=== PATIENT | female | born 1970 | race Caucasian/White ===

== ENCOUNTER → 2022-05-02 12:51 | Outpatient (BNVA) | payer OTHER, SELFPAY | PROVIDERS: PCP Internal Medicine; Visit Provider Psychiatry & Neurology Neurology | DX: G43.119 Migraine with aura, intractable, without status migrainosus (principal); G43.109 Migraine with aura, not intractable, without status migrainosus; G47.10 Hypersomnia, unspecified; R06.83 Snoring | CPT/HCPCS: 99202 ==

== ENCOUNTER → 2022-05-27 10:34 | Outpatient (REF) | payer OTHER, SELFPAY | LOC: HO.SL 10:34 | PROVIDERS: PCP Internal Medicine; Visit Provider Psychiatry & Neurology Neurology | DX: G47.10 Hypersomnia, unspecified (principal); G43.109 Migraine with aura, not intractable, without status migrainosus; R06.83 Snoring | CPT/HCPCS: 95806 ==

== ENCOUNTER → 2022-07-04 10:51 | Outpatient (BNVA) | payer OTHER, SELFPAY | PROVIDERS: PCP Internal Medicine Hematology & Oncology; Visit Provider Nurse Practitioner Family | DX: G43.109 Migraine with aura, not intractable, without status migrainosus (principal); F43.10 Post-traumatic stress disorder, unspecified; G47.10 Hypersomnia, unspecified; R06.83 Snoring | CPT/HCPCS: 99212 ==

== ENCOUNTER → 2022-09-18 10:44 | Outpatient (BNVA) | payer OTHER, SELFPAY | PROVIDERS: PCP Internal Medicine Hematology & Oncology; Visit Provider Nurse Practitioner Family | DX: G43.119 Migraine with aura, intractable, without status migrainosus (principal); G43.109 Migraine with aura, not intractable, without status migrainosus; F43.10 Post-traumatic stress disorder, unspecified | CPT/HCPCS: 99212 ==

== ENCOUNTER → 2023-01-08 11:15 | Outpatient (BNVA) | payer OTHER, SELFPAY | PROVIDERS: PCP Internal Medicine Hematology & Oncology; Visit Provider Physician Assistant Surgical ==

== ENCOUNTER 2023-04-23 12:48 | Outpatient (AMB) | payer OTHER, SELFPAY ==
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
[2023-04-23 13:19] VITALS: BP 122/76; PULSE 65; O2SAT 96
== END 2023-04-23 13:56 | disposition home or self-care (01) ==
PROVIDERS: Visit Provider Nurse Practitioner Family
DX: G43.119 Migraine with aura, intractable, without status migrainosus (principal); G47.9 Sleep disorder, unspecified
CPT/HCPCS: 99214

== ENCOUNTER → 2023-04-23 12:48 | Outpatient (BNVA) | payer OTHER, SELFPAY | PROVIDERS: Visit Provider Nurse Practitioner Family | DX: G43.119 Migraine with aura, intractable, without status migrainosus (principal); G47.9 Sleep disorder, unspecified | CPT/HCPCS: 99212 ==

== ENCOUNTER 2023-09-02 10:51 | Outpatient (AMB) | payer OTHER, SELFPAY ==
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
[2023-09-02 11:22] VITALS: BP 142/90; PULSE 68; RESP 16; O2SAT 98; BMI 34.4
== END 2023-09-02 11:43 | disposition home or self-care (01) ==
PROVIDERS: PCP Internal Medicine Hematology & Oncology; Visit Provider Nurse Practitioner Family
DX: G43.119 Migraine with aura, intractable, without status migrainosus (principal); G47.9 Sleep disorder, unspecified
CPT/HCPCS: 99214

== ENCOUNTER → 2023-09-02 10:56 | Outpatient (BNVA) | payer OTHER, SELFPAY | PROVIDERS: PCP Internal Medicine Hematology & Oncology; Visit Provider Nurse Practitioner Family | DX: G43.119 Migraine with aura, intractable, without status migrainosus (principal); G47.9 Sleep disorder, unspecified | CPT/HCPCS: 99212 ==

== ENCOUNTER 2023-12-04 13:56 | Outpatient (AMB) | payer OTHER, SELFPAY ==
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
[2023-12-04 14:10] VITALS: BP 130/80; PULSE 64; O2SAT 95; BMI 34.9
== END 2023-12-04 14:35 | disposition home or self-care (01) ==
PROVIDERS: PCP Internal Medicine Hematology & Oncology; Visit Provider Nurse Practitioner Family
DX: G43.119 Migraine with aura, intractable, without status migrainosus (principal); G47.9 Sleep disorder, unspecified
CPT/HCPCS: 99214

== ENCOUNTER → 2023-12-04 13:56 | Outpatient (BNVA) | payer OTHER, SELFPAY | PROVIDERS: PCP Internal Medicine Hematology & Oncology; Visit Provider Nurse Practitioner Family | DX: G43.119 Migraine with aura, intractable, without status migrainosus (principal); G47.9 Sleep disorder, unspecified | CPT/HCPCS: 99212 ==

== ENCOUNTER 2024-01-27 07:02 | Outpatient (REF) | payer OTHER, SELFPAY ==
--- NOTE | ~2024-01-27 | MR_ITS ---
EXAMINATION: MR BRAIN WITHOUT CONTRAST CLINICAL INFORMATION: Migraine with aura, intractable, without status migrainosus. COMPARISON: No prior MRI or CT available. TECHNIQUE: MRI of the brain was obtained using entered sequences without gadolinium. FINDINGS: There is no diffusion restriction identified. There is no intracranial hemorrhage, acute infarction, mass effect, or edema. There is an old lacunar type infarct in the right cerebellar hemisphere. Ventricles, sulci, and cisterns are normal in size and configuration for patient age. No shift of midline. No abnormal hemosiderin deposition is identified. There are a few rare punctate foci of white matter T2 hyperintensity in the periventricular, subcortical, and hemispheric deep white matter, nonspecific. Midline structures appear normally formed. The pituitary gland appears normal. Cerebellar tonsils are appropriately located. Major flow voids are preserved within the skull base. The globes and orbital contents demonstrate no abnormalities. Mild to moderate mucosal thickening present in the right maxillary sinus, and milder changes present in the left maxillary and ethmoid sinuses. There is leftward deviation of the posterior nasal septum with spurring. The mastoids and tympanic cavities are normally aerated. Extracranial soft tissues demonstrate no abnormalities. No suspicious bone marrow changes are evident. 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 MR/MR head/brain wo con IMPRESSION: 1. No acute intracranial abnormalities. 2. A few nonspecific tiny white matter foci, most likely on the basis of small vessel ischemic changes. These have been described in relation with migraines. 3. 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 4. Mild to moderate right maxillary sinus mucosal disease. Milder changes left maxillary sinus and ethmoid sinuses.
== END 2024-01-27 07:03 | disposition home or self-care (01) ==
LOC: HO.MRI 07:02
PROVIDERS: PCP Internal Medicine; Visit Provider Nurse Practitioner Family
DX: G43.119 Migraine with aura, intractable, without status migrainosus (principal); I12.9 Hypertensive chronic kidney disease with stage 1 through stage 4 chronic kidney disease, or unspecified chronic kidney disease; N18.9 Chronic kidney disease, unspecified
CPT/HCPCS: 70551

== ENCOUNTER → 2024-01-27 07:03 | Outpatient (BNV) | payer OTHER, SELFPAY | PROVIDERS: PCP Internal Medicine; Visit Provider Radiology Diagnostic Radiology | DX: G43.119 Migraine with aura, intractable, without status migrainosus (principal) | CPT/HCPCS: 70551 ==

== ENCOUNTER → 2024-03-14 12:10 | Outpatient (REF) | payer OTHER, SELFPAY ==
--- NOTE | 2024-03-14 12:15 | CA_ITS ---
Transthoracic Echocardiogram Patient (Last, First, Middle): Sushma Lyn, Gender: Female Date of : 1970 Age: 53 Procedure Date: 03/14/2024 Procedure Type: Transthoracic Echocardiogram Location: OP Height: 175.26 cm Weight: 107.05 kg BSA: 2.22 m2 Heart Rate: bpm BP: 130 / 80 mmHg Director Of Search Engine Marketing: ISMAEL Larsen MD: Samantha ROLDAN Senior Risk Manager: Ousmane Lima MD Symptoms: I63.81 - Other cerebral infarction due to occlusion or stenosis of small... Study Quality: Technically Difficult ECG Rhythm: Sinus Conclusions: - 1. Normal LV ejection fraction 55-60% with mild LVH with impaired relaxation filling pattern 2. Normal cardiac valvular Dopplers 3. Mildly dilated ascending aorta at 3.7 cm 4. Normal RV systolic pressure 5. No gross pericardial effusion Findings Procedure Information Contrast agent, definity, is being given per protocol without apparent complications. Left Ventricle Normal left ventricular size and systolic function. There is mildly increased left ventricular wall thickness. The visually estimated ejection fraction is between 55-60%. Spectral Doppler is indicative of an impaired relaxation filling pattern. E/E prime ratio is between 8 and 15 consistent with indeterminate filling pressures. Right Ventricle Normal right ventricular cavity size and systolic function. Atria The left atrium is likely dilated. There is no evidence of interatrial shunt by agitated saline. The right atrium is normal in size. Aortic Valve Normal aortic valve structure and function. There is no aortic valve stenosis. There is no aortic valve regurgitation. Mitral Valve Normal mitral valve structure and function. There is trace mitral valve regurgitation. There is no mitral valve stenosis. Pulmonic Valve The pulmonic valve is likely normal. Tricuspid Valve Normal tricuspid valve structure. There is trace tricuspid valve regurgitation. The right ventricular systolic pressure is normal. The right ventricular systolic pressure is 26 mmHg. Normal right atrial pressure. There is no evidence of pulmonary hypertension. Great Vessels The pulmonary artery was not well visualized. There is mild dilatation of the ascending aorta measuring 3.70 cm. Venous The inferior vena cava is mildly dilated. Pericardium/Pleural There is no evidence of pericardial effusion. Prior Study Comparison No prior study available for comparison. Recommendations, Care & Conclusions Consider a ADRIANA if clinically appropriate. Measurements 2D Linear Measurements IVSd: 1.21 0.6-0.9/0.6-1.0 cm LVIDd: 4.21 3.9-5.3/4.2-5.9 cm LVIDd Index: 1.90 2.4-3.2/2.2-3.1 cm/m2 LVIDs: 2.66 2.0-3.6 cm LVPWd: 1.08 0.7-1.1 cm Ao Root: 3.70 2.1-3.5 cm LA Diam: 3.60 2.7-3.8/3.0-4.0 cm LAIDs Index: 1.62 1.5-2.3 cm/m2 LV Mass: 208.01 67-162/88-224 g LV Mass Index: 93.70 43-95/49-115 g/m2 LVOT Diam: 2.20 3.0+(-)1.3 cm 2D Systolic Function EF 4C: 54.00 >55% EF 2C: 57.30 >55% EF BiP: 55.50 >55% Mitral Valve MV Pk E: 0.54 MV PK A: 0.78 MV Decel Time: 291.00 E/A: 0.70 E'Lateral: 5.44 E'Medial: 7.72 E/E' Med: 6.90 E/E' Lat: 9.90 PHT: 85.00 MVA PHT: 2.59 Decel [place]: 1.84 Aortic Valve AoV Pk Oumar: 1.41 AoV Mn Oumar: 0.99 AoV VTI: 0.26 AoV Pk Grad: 8.00 Aov Mn Grad: 4.00 ISAI Cont.VTI: 3.80 LVOT LVOT Pk Oumar: 1.06 LVOT Mn Oumar: 0.79 LVOT VTI: 0.26 LVOT Pk Grad: 4.00 LVOT Mn Grad: 3.00 LVOT Diam: 2.20 LVOT Area: 3.80 Diastolic Function MV Pk E: 0.54 MV Pk A: 0.78 E/A: 0.70 E'Medial: 7.72 E/E' Med: 6.90 E' Laterial: 5.44 E/E' Lat: 9.90 Right Ventricle TAPSE (mm): 17.00 TVS' Oumar: 9.25 Tricuspid Valve TR Pk Oumar: 2.13 TR Pk Grad: 18.00 RA Press: 8.00 RVSP: 26.00 Great Vessels Aorta Ao Root-2D: 3.70 2.0-3.7 cm Ao Asc: 3.70 2.1-3.4 cm Ao Arch: 3.10 Updated in Other Vendor System with Status of Final Ousmane Lima MD electronically signed on 03/15/2024 12:52:16 PM with status of Final
== END ==
LOC: HO.CARD 12:10
PROVIDERS: PCP Internal Medicine; Visit Provider Nurse Practitioner Family
DX: I63.81 Other cerebral infarction due to occlusion or stenosis of small artery (principal); I12.9 Hypertensive chronic kidney disease with stage 1 through stage 4 chronic kidney disease, or unspecified chronic kidney disease; N18.9 Chronic kidney disease, unspecified
CPT/HCPCS: 93306; Q9957

== ENCOUNTER → 2024-03-14 12:15 | Outpatient (BNV) | payer OTHER, SELFPAY | PROVIDERS: PCP Internal Medicine; Visit Provider Internal Medicine Cardiovascular Disease | DX: I63.81 Other cerebral infarction due to occlusion or stenosis of small artery (principal); R93.1 Abnormal findings on diagnostic imaging of heart and coronary circulation | CPT/HCPCS: 93306 ==

== ENCOUNTER 2024-03-15 14:21 | Outpatient (AMB) | payer OTHER, SELFPAY ==
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
[2024-03-15 14:27] VITALS: BP 142/82; PULSE 71; RESP 16; O2SAT 96; BMI 34.8
== END 2024-03-15 15:03 | disposition home or self-care (01) ==
PROVIDERS: PCP Internal Medicine; Visit Provider Psychiatry & Neurology Neurology
DX: G43.719 Chronic migraine without aura, intractable, without status migrainosus (principal)
CPT/HCPCS: 64615

== ENCOUNTER → 2024-03-15 14:21 | Outpatient (BNVA) | payer OTHER, SELFPAY | PROVIDERS: PCP Internal Medicine; Visit Provider Psychiatry & Neurology Neurology | DX: G43.719 Chronic migraine without aura, intractable, without status migrainosus (principal) | CPT/HCPCS: 64615; 99211; J0585 ==

== ENCOUNTER 2024-03-29 09:53 | Outpatient (REF) | payer OTHER, SELFPAY ==
[2024-03-29 10:06] LABS: MANUAL DIFF FLAG NO
[2024-03-29 10:46] LABS: Basophils Absolute Auto 0.1 X10*3/uL (0.0-0.2); Basophils Percent Auto 1.2 % (0-2); Eosinophils Absolute Auto 0.1 X10*3/uL (0.0-0.4); Eosinophils Percent Auto 2.7 % (0-4); Hematocrit 44.3 % (37.0-47.0); Hemoglobin 14.9 g/dl (12.0-16.0); Imm Gran Abs Auto 0.03 X10*3/uL (0.00-0.03); Imm Gran Pct Auto 0.6 % (0.0-0.4); Lymphocytes Absolute Auto 1.4 X10*3/uL (1.2-4.9); Lymphocytes Percent Auto 26.8 % (20-40); Mean Corpuscular HGB Conc 33.6 g/dl (31.0-35.0); Mean Corpuscular Hemoglobin 28.3 pg (27.0-33.0); Mean Corpuscular Volume 84.1 fL (80.0-98.0); Mean Platelet Volume 10.3 fL (9.4-12.3); Monocytes Absolute Auto 0.3 X10*3/uL (0.1-1.2); Monocytes Percent Auto 6.2 % (2-11); Neutrophils Absolute Auto 3.2 x10*3/uL (2.0-8.3); Neutrophils Percent Auto 62.5 % (45-73); Platelet Count 180 X10*3/uL (160-400); Red Blood Count 5.27 X10*6/uL (4.20-5.50); Red Cell Distribution Width 13.3 % (11.0-16.0); White Blood Count 5.1 X10*3/uL (4.8-10.8)
[2024-03-29 11:34] LABS: Alanine Aminotransferase 15 U/L (0-31); Albumin Level 4.4 g/dL (3.5-5.0); Alkaline Phosphatase 74 U/L (39-117); Anion Gap 13 (12-20); Aspartate Amino Transferase 17 U/L (5-31); Bilirubin Total 1.1 mg/dL (0.0-1.0); Blood Urea Nitrogen 14 mg/dL (9-16); Calcium 9.8 mg/dL (8.4-10.2); Carbon Dioxide 28 mmol/L (22-29); Chloride 106 mmol/L (96-108); Estimated Glomerular Filt Rate 57; Glucose Random 106 mg/dL (60-115); Potassium 4.1 mmol/L (3.3-5.1); Sodium 143 mmol/L (135-145); Total Protein 7.5 g/dL (6.5-8.0)
[2024-03-29 11:37] LABS: Erythrocyte Sedimentation Rate 6 MM/HR (0-20)
[2024-03-30 08:43] LABS: CRP High Sensitivity 3.8 mg/L
== END 2024-03-29 09:54 | disposition home or self-care (01) ==
LOC: HO.LAB 09:53
PROVIDERS: PCP Internal Medicine; Visit Provider Nurse Practitioner Family
DX: I63.81 Other cerebral infarction due to occlusion or stenosis of small artery (principal); I10 Essential (primary) hypertension; N18.9 Chronic kidney disease, unspecified
CPT/HCPCS: 36415; 80053; 85025; 85652; 86141

== ENCOUNTER 2024-04-12 07:44 | Outpatient (REF) | payer OTHER, SELFPAY ==
--- NOTE | ~2024-04-12 | CT_ITS ---
EXAMINATION: CT ANGIOGRAM HEAD CT ANGIOGRAM NECK CLINICAL INFORMATION: Hypertension, chronic migraine headaches with aura, right-sided lacunar infarct COMPARISON: MRI brain January 27, 2024 TECHNIQUE: Test bolus sequences followed by intravenous administration 70 mL of Omnipaque 350. Helical imaging was performed in the axial plane from the aortic arch to the skull vertex. Delayed postcontrast imaging of the head was also performed. The data was processed at the instructional design technologist's workstation for generation of MIP sequences. Angled MIPs and volume rendered reformatted images were also generated at an offline 3D workstation. Stenoses are assessed in accordance with Munson et al. Quantification of Carotid Stenosis on CT Angiography. AJR 2006. 27(1):13-19. This CT examination was performed using dose optimization techniques as appropriate, variously including the following: *Automated exposure control *Adjustment of mA and/or kV according to patient size (this includes techniques or standardized protocols for targeted exams where dose is matched to indication/reason for exam; i.e. extremities or head) *Use of iterative reconstruction technique DLP: 2724 mGy-cm FINDINGS: CT HEAD: The ventricles and sulci are normal in size and configuration without significant volume loss or hydrocephalus. Chronic lacunar infarct within the right cerebellum is better appreciated on prior MRI. No territorial loss of antony-white differentiation. No acute intracranial hemorrhage or extra-axial fluid collection. No mass lesion, significant mass effect, or herniation pattern. No pathologic intra-axial enhancement or regional oligemia. The orbits are grossly normal. Trace paranasal sinus mucosal thickening. No mastoid effusion. Osseous structures are intact. CTA HEAD: No hemodynamically significant stenosis or occlusion in the anterior or posterior circulation. Trace calcified plaque at the right supraclinoid ICA without stenosis. 2 mm infundibulum vs aneurysm arising from the terminal left ICA. No high flow vascular malformations. Timing of the contrast bolus allows assessment of the major dural venous sinuses, which all opacify normally CTA NECK: Four vessel branching pattern with left vertebral artery arising directly from the arch between the left common carotid and left subclavian arteries. Origins of the great vessels are widely patent. The common carotid arteries are widely patent. The carotid bifurcations and bilateral internal carotid arteries are normal. The right vertebral artery is dominant. The vertebral artery ostia are widely patent. Both vertebral arteries are widely patent throughout their extracranial cervical course noting limited diagnostic assessment of the right V1 segment related to beam hardening artifact from adjacent perivertebral venous contrast opacification. CT NECK: Asymmetric enlargement of the right thyroid lobe with apparent nodule measuring approximately 1.5 cm in craniocaudal dimension for which further evaluation with thyroid ultrasound is advised. Symmetric prominent bilateral level 2A lymph nodes, presumably reactive. Elongation and ossification of the bilateral styloid processes that can be correlated clinically for [place] syndrome. CT/CT angio head neck IMPRESSION: 1. No acute intracranial findings. Chronic lacunar infarct within the right cerebellum is better appreciated on prior MRI. 2. No acute arterial occlusion or hemodynamically significant stenosis within the head or neck. 3. 2 mm infundibulum vs aneurysm arising from the terminal left ICA. 4. Asymmetric enlargement of the right thyroid lobe with apparent nodule measuring approximately 1.5 cm in craniocaudal dimension for which further evaluation with thyroid ultrasound is advised. 5. Elongation and ossification of the bilateral styloid processes that can be correlated clinically for [place] syndrome. Electronically signed by: Crista Stein MD 04/19/2024 05:00 PM EDT
[2024-04-12] MEDS: iohexoL 350 MG/ML 75 ML INFUS..BTL 70 ML IV (08:38)
== END 2024-04-12 07:45 | disposition home or self-care (01) ==
LOC: HO.CT 07:44
PROVIDERS: Visit Provider Nurse Practitioner Family
DX: I63.81 Other cerebral infarction due to occlusion or stenosis of small artery (principal); I12.9 Hypertensive chronic kidney disease with stage 1 through stage 4 chronic kidney disease, or unspecified chronic kidney disease; N18.9 Chronic kidney disease, unspecified
CPT/HCPCS: 70496; 70498; Q9967

== ENCOUNTER 2024-04-27 17:38 | Emergency (ER) | payer OTHER, SELFPAY ==
--- NOTE | ~2024-04-27 | CT_ITS ---
EXAMINATION: CT HEAD WITHOUT CONTRAST CLINICAL INFORMATION: Severe headache. COMPARISON: CT from 04/12/2024. TECHNIQUE: Contiguous axial imaging was performed from the skullbase to vertex without intravenous administration of contrast. This CT examination was performed using dose optimization techniques as appropriate, variously including the following: *Automated exposure control *Adjustment of mA and/or kV according to patient size (this includes techniques or standardized protocols for targeted exams where dose is matched to indication/reason for exam; i.e. extremities or head) *Use of iterative reconstruction technique DLP: 661 mGy-cm. FINDINGS: There is no evidence of acute intracranial hemorrhage or territorial infarction. No abnormal mass effect or midline shift is seen. Aguilar to white matter differentiation is well preserved. No extra-axial fluid collections are identified. The ventricles are normal in size. There is no abnormal attenuation within the brain parenchyma. The osseous structures and soft tissues are normal. The mastoid air cells and visualized portions of the paranasal sinuses are well aerated. CT/CT head/brain wo IV con IMPRESSION: No acute intracranial pathology. Electronically signed by: Montez Seals MD 04/27/2024 06:35 PM EDT
[2024-04-27 17:50] VITALS: BP 169/98; PULSE 65; RESP 81; TEMP 36.7; O2SAT 95; BMI 35.1
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
[2024-04-27 18:21] LABS: MANUAL DIFF FLAG NO
[2024-04-27 18:26] LABS: Basophils Absolute Auto 0.1 X10*3/uL (0.0-0.2); Eosinophils Absolute Auto 0.2 X10*3/uL (0.0-0.4); Eosinophils Percent Auto 2.7 % (0-4); Hematocrit 43.3 % (37.0-47.0); Hemoglobin 14.4 g/dl (12.0-16.0); Imm Gran Abs Auto 0.03 X10*3/uL (0.00-0.03); Imm Gran Pct Auto 0.5 % (0.0-0.4); Lymphocytes Absolute Auto 1.7 X10*3/uL (1.2-4.9); Lymphocytes Percent Auto 28.3 % (20-40); Mean Corpuscular HGB Conc 33.3 g/dl (31.0-35.0); Mean Corpuscular Hemoglobin 28.3 pg (27.0-33.0); Mean Corpuscular Volume 85.2 fL (80.0-98.0); Mean Platelet Volume 10.1 fL (9.4-12.3); Monocytes Absolute Auto 0.4 X10*3/uL (0.1-1.2); Monocytes Percent Auto 6.4 % (2-11); Neutrophils Absolute Auto 3.7 x10*3/uL (2.0-8.3); Neutrophils Percent Auto 61.1 % (45-73); Platelet Count 189 X10*3/uL (160-400); Red Blood Count 5.08 X10*6/uL (4.20-5.50); Red Cell Distribution Width 13.2 % (11.0-16.0)
[2024-04-27 18:39] LABS: Alanine Aminotransferase 14 U/L (0-31); Albumin Level 4.3 g/dL (3.5-5.0); Alkaline Phosphatase 75 U/L (39-117); Anion Gap 11 (12-20); Aspartate Amino Transferase 17 U/L (5-31); Blood Urea Nitrogen 9 mg/dL (9-16); Calcium 9.3 mg/dL (8.4-10.2); Carbon Dioxide 26 mmol/L (22-29); Chloride 107 mmol/L (96-108); Creatinine Clr Calc Pharmacy 91.3; Estimated Glomerular Filt Rate > 60; Glucose Random 93 mg/dL (60-115); Potassium 3.9 mmol/L (3.3-5.1); Sodium 140 mmol/L (135-145); Total Protein 7.3 g/dL (6.5-8.0)
[2024-04-27 19:01] LABS: Erythrocyte Sedimentation Rate 5 MM/HR (0-20)
[2024-04-27] MEDS: Cyclobenzaprine HCl 10 MG TABLET PO (23:28)
[2024-04-27 23:54] VITALS: BP 169/98; PULSE 65; RESP 16; TEMP 36.7; O2SAT 95
== END 2024-04-27 23:55 | disposition home or self-care (01) ==
PROVIDERS: Physician Assistant; Emergency Provider Emergency Medicine
DX: G44.209 Tension-type headache, unspecified, not intractable (principal); I12.9 Hypertensive chronic kidney disease with stage 1 through stage 4 chronic kidney disease, or unspecified chronic kidney disease; N18.9 Chronic kidney disease, unspecified; Z86.73 Personal history of transient ischemic attack (TIA), and cerebral infarction without residual deficits
CPT/HCPCS: 36415; 70450; 80053; 85025; 85652; 86140; 99283; 99284

== ENCOUNTER 2024-05-12 12:33 | Outpatient (REF) | payer OTHER, SELFPAY ==
--- NOTE | ~2024-05-12 | XR_ITS ---
EXAMINATION: XR CERVICAL SPINE CLINICAL INFORMATION: Cervicalgia COMPARISON: None available. TECHNIQUE: 6 views of the cervical spine, inclusive of flexion and extension views, were obtained. FINDINGS: C7 is obscured by the soft tissues of the patient's shoulder on the lateral view. This is not better seen on the Swimmer's view. The tip of the odontoid is obscured on the open-mouth view. There is no fracture. Prevertebral soft tissues are within normal limits. There is mild disc space narrowing at C5-C6 and C6-C7 with marginal osteophyte formation. There is no subluxation. There is no change in alignment with flexion or extension. The neural foramina are patent. XR/XR cervical spine w flex/ext IMPRESSION: 1. Degenerative disc disease at C5-C6 and C6-C7. 2. No evidence of subluxation. 3. No change in alignment with flexion or extension. Electronically signed by: Bridgette Ballesteros MD 06/02/2024 02:11 PM EDT
== END 2024-05-12 12:34 | disposition home or self-care (01) ==
LOC: HO.XRAY 12:33
PROVIDERS: PCP Internal Medicine; Visit Provider Nurse Practitioner Family
DX: M54.2 Cervicalgia (principal); M54.81 Occipital neuralgia
CPT/HCPCS: 72052

== ENCOUNTER 2024-05-17 12:55 | Outpatient (AMB) | payer OTHER, SELFPAY ==
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
[2024-05-17 13:08] VITALS: BP 139/92; PULSE 64; O2SAT 99; BMI 34.6
== END 2024-05-17 13:54 | disposition home or self-care (01) ==
PROVIDERS: Visit Provider Nurse Practitioner Family
DX: M54.81 Occipital neuralgia (principal); I67.1 Cerebral aneurysm, nonruptured; G43.709 Chronic migraine without aura, not intractable, without status migrainosus; E04.1 Nontoxic single thyroid nodule
CPT/HCPCS: 99204; G2211

== ENCOUNTER → 2024-05-17 12:55 | Outpatient (BNVA) | payer OTHER, SELFPAY | PROVIDERS: Visit Provider Nurse Practitioner Family | DX: M54.81 Occipital neuralgia (principal); G43.709 Chronic migraine without aura, not intractable, without status migrainosus; I67.1 Cerebral aneurysm, nonruptured | CPT/HCPCS: 99202 ==

== ENCOUNTER 2024-05-30 13:48 | Outpatient (REF) | payer OTHER, SELFPAY ==
--- NOTE | ~2024-05-30 | US_ITS ---
EXAMINATION: US THYROID CLINICAL INFORMATION: Asymmetric enlargement of the right lobe of the thyroid. COMPARISON: None available. TECHNIQUE: Linear transducer grayscale and color Doppler examination with attention to the region of the thyroid. FINDINGS: SIZE: Measurements of the thyroid lobes and nodules are given in sagittal, anteroposterior and transverse dimensions respectively. Right Thyroid Lobe: 5.1 x 1.7 x 1.7 cm, volume 8 mL. Parenchyma: The gland echotexture is homogeneous. Thyroid vascularity is normal. Left Thyroid Lobe: 4.2 x 1.7 x 1.7 cm, volume 6 mL. Parenchyma: The gland echotexture is homogeneous. Thyroid vascularity is normal. Isthmus: 0.4 cm in maximum AP dimension. Estimated total number of nodules greater than or equal to 1 cm: 1. 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 Location: Right upper. Size: 0.7 x 0.6 x 0.4 cm, volume 0.1 mL. Nodule characteristics: Composition: Solid (2). Echogenicity: Isoechoic (1). Shape: Not taller than wide (0). Margins: Smooth (0). Echogenic Foci: None (0). ACR TI-RADS total points: 3 ACR TI-RADS category: 3 2. Location: Right mid. Size: 1.0 x 0.9 x 0.8 cm, volume 0.4 mL. Nodule characteristics: Composition: Solid (2). Echogenicity: Isoechoic (1). Shape: Not taller than wide (0). Margins: Smooth (0). Echogenic Foci: None (0). ACR TI-RADS total points: 3 ACR TI-RADS category: 3 NODES: No lymphadenopathy is seen in the tissue surrounding the thyroid gland. US/US thyroid IMPRESSION: 1.0 cm or less, TI-RADS category 3, right thyroid nodules. No further dedicated follow-up imaging of these nodules is indicated, per ACR recommendation. ACR TI-RADS RECOMMENDATION REFERENCE: Ultrasound-guided fine-needle aspiration, followup ultrasound, no further follow up. * TR1 (0 point) and TR2 (2 points): No FNA or follow up. * TR3 (3 points): FNA if more than or equal to 2.5 cm in maximum dimension, followup ultrasound in 1, 3 and 5 years if 1.5 to 2.4 cm in maximum dimension. * TR4 (4-6 points): FNA if more than or equal to 1.5 cm in maximum dimension, followup ultrasound in 1, 2, 3 and 5 years if 1 to 1.4 cm in maximum dimension. * TR5 (more than or equal to 7 points): FNA if more than or equal to 1 cm in maximum dimension, followup ultrasound every year for 5 years if 0.5 to 0.9 cm in maximum dimension. * TR3, TR4 or TR5 nodules that are below the size threshold for followup receive no follow up. Electronically signed by: David Sierra MD 05/30/2024 04:45 PM EDT
== END 2024-05-30 13:49 | disposition home or self-care (01) ==
LOC: HO.US 13:48
PROVIDERS: PCP Internal Medicine; Visit Provider Nurse Practitioner Family
DX: E04.1 Nontoxic single thyroid nodule (principal)
CPT/HCPCS: 76536

== ENCOUNTER 2024-06-10 08:51 | Outpatient (AMB) | payer OTHER, SELFPAY ==
[2024-06-10 09:19] VITALS: BP 161/78; PULSE 69; RESP 16; O2SAT 94; BMI 35.0
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
== END 2024-06-10 09:30 | disposition home or self-care (01) ==
PROVIDERS: Visit Provider Internal Medicine
DX: M54.81 Occipital neuralgia (principal)
CPT/HCPCS: 64405

== ENCOUNTER → 2024-06-10 08:51 | Outpatient (BNVA) | payer OTHER, SELFPAY | PROVIDERS: Visit Provider Internal Medicine | DX: M54.81 Occipital neuralgia (principal) | CPT/HCPCS: 64405; J2795 ==

== ENCOUNTER 2024-06-20 12:24 | Outpatient (AMB) | payer OTHER, SELFPAY ==
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
[2024-06-20 12:33] VITALS: BP 132/82; PULSE 72; O2SAT 97; BMI 35.1
== END 2024-06-20 12:55 | disposition home or self-care (01) ==
PROVIDERS: PCP Internal Medicine; Visit Provider Psychiatry & Neurology Neurology
DX: G43.719 Chronic migraine without aura, intractable, without status migrainosus (principal)
CPT/HCPCS: 64615

== ENCOUNTER → 2024-06-20 12:24 | Outpatient (BNVA) | payer OTHER, SELFPAY | PROVIDERS: PCP Internal Medicine; Visit Provider Psychiatry & Neurology Neurology | DX: G43.719 Chronic migraine without aura, intractable, without status migrainosus (principal) | CPT/HCPCS: 64615; 99211; J0585 ==

== ENCOUNTER 2024-09-01 13:50 | Outpatient (AMB) | payer OTHER, SELFPAY ==
[2024-09-01 13:55] VITALS: BP 148/90; PULSE 66; BMI 35.0
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
== END 2024-09-01 14:34 | disposition home or self-care (01) ==
PROVIDERS: Visit Provider Internal Medicine Cardiovascular Disease
DX: I11.9 Hypertensive heart disease without heart failure (principal); I69.30 Unspecified sequelae of cerebral infarction; R94.31 Abnormal electrocardiogram [ECG] [EKG]
CPT/HCPCS: 93010; 99214; G2211

== ENCOUNTER → 2024-09-01 13:50 | Outpatient (BNVA) | payer OTHER, SELFPAY | PROVIDERS: Visit Provider Internal Medicine Cardiovascular Disease | DX: I11.9 Hypertensive heart disease without heart failure (principal); Z86.73 Personal history of transient ischemic attack (TIA), and cerebral infarction without residual deficits; R94.31 Abnormal electrocardiogram [ECG] [EKG] | CPT/HCPCS: 93005; 99212 ==

== ENCOUNTER → 2024-11-01 14:45 | Outpatient (BNVA) | payer OTHER, SELFPAY | PROVIDERS: PCP Internal Medicine; Visit Provider Psychiatry & Neurology Neurology | DX: G43.719 Chronic migraine without aura, intractable, without status migrainosus (principal) | CPT/HCPCS: 64615; 99211; J0585 ==

== ENCOUNTER → 2024-11-01 14:45 | Outpatient (AMB) | payer OTHER, SELFPAY ==
[2024-11-01 14:51] VITALS: BP 142/94; PULSE 70; O2SAT 97; BMI 35.0
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
--- OUTSIDE RECORDS SUMMARY | 2024-11-01 18:39 | XMS_ITS | Encounter Summary ---
Author Organization [facility] Address [address] [place] [address] Care Team Providers Care Manager Database Administration Name Role Phone Tiff Bhakta MD Primary Care Provider [phone] Melchor Rodríguez MD Primary Care Provider [phone] Reason for Visit * Reason Comments E-prescribe Rx Request Encounter Details Date Type Department Care Team Description 12/31/2021 Refill Adult Medicine [facility] [address] [place] [id number] Jenni Brady PA [address] [place] [address] [id number] E-prescribe Rx Request Social History Tobacco Use Types Packs/Day Years Used Date Smoking Tobacco: Never Smokeless Tobacco: Never Alcohol Use Standard Drinks/Week Comments No 0 (1 standard drink = 0.6 oz pur e alcohol) Sex Assigned at Date Recorded Not on file Job Start Date Occupation Industry Not on file Not on file Not on file documented as of this encounter Miscellaneous Notes * Telephone Encounter - Dayanna Monroy M.A. - 12/31/2021 10:34 AM EDT Lab Results Component Value Date NA 142 10/16/2021 K 3.9 10/16/2021 CO2 28 10/16/2021 CL 108 10/16/2021 BUN 9 10/16/2021 CREAT 0.93 10/16/2021 GLU 91 10/16/2021 CA 9.0 10/16/2021 GFR > 60 10/16/2021 Last appt with Jenni Brady PAC 10/18/21 Last rx 10/14/21 #90 with 2 refills Pending appt with Sarah Meier, PAC 04/17/22 * Telephone Encounter - Lisa Lawson - 12/31/2021 7:48 AM EDT Patient would like script to be: E-PRESCRIBED/FAXED TO PHARMACY WHEN WAS THE PATIENT'S LAST APPOINTMENT IN ADULT MEDICINE? 10/14/21 WHEN WAS THE LAST TIME THE PATIENT SAW THEIR PCP? never Does patient have an upcoming appointment? Yes 04/17/22 (THE MEDICATION REQUESTED IS ON THE MED LIST ABOVE) All of the medications requested were on the CURRENT MEDS list Did you check the Pharmacy information above?: YES Patient wants: 90 -day supply Is this a mail order prescription request ? NO If the refill is from a FAXED refill request what is the RX # listed on the fax? N/A Patients current insurance carrier is: Payor: [employer] / Plan: [employer] [place] / Product Type: MEDICAID RISK documented in this encounter Plan of Treatment Not on file documented as of this encounter Visit Diagnoses Not on filedocumented in this encounter Care Teams Manager Database Administration Relationship Specialty Start Date End Date Tiff Bhakta MD [address] [place] [address] PCP - General Internal Medicine 08/27/21 03/26/22 Melchor Rodríguez MD [address] [place] [id number] PCP - General Internal Medicine 03/27/22 documented as of this encounter
--- OUTSIDE RECORDS SUMMARY | 2024-11-01 18:39 | XMS_ITS | Encounter Summary ---
[facility] Organization [facility] Address [address] [place] [address] Care Team Providers Care Button Tufter Name Role Phone Jose Abbasi MD Primary Care Provider Unavailable Tiff Bhakta MD Primary Care Provider Melchor Rodríguez MD Primary Care Provider [phone] Encounter Details Date Type Department Care Team Description 01/07/2017 [facility] Medical Records [address] [place] [address] Abstract, Provider Social History Tobacco Use Types Packs/Day Years Used Date Smoking Tobacco: Never Smokeless Tobacco: Never Alcohol Use Standard Drinks/Week Comments No 0 (1 standard drink = 0.6 oz pur e alcohol) Sex Assigned at Date Recorded Not on file Job Start Date Occupation Industry Not on file Not on file Not on file documented as of this encounter Plan of Treatment Not on file documented as of this encounter Visit Diagnoses Not on filedocumented in this encounter Care Teams Button Tufter Relationship Specialty Start Date End Date Jose Abbasi MD PCP - General Internal Medicine 01/18/19 Tiff Bhakta MD [address] [place] [address] PCP - General Internal Medicine 08/27/21 03/26/22 Melchor Rodríguez MD [address] [place] [address] PCP - General Internal Medicine 03/27/22 documented as of this encounter
--- OUTSIDE RECORDS SUMMARY | 2024-11-01 18:39 | XMS_ITS | Encounter Summary ---
Author Organization [facility] Address [address] [place] [address] Care Team Providers Care Government Relations Director Name Role Phone Jose Abbasi MD Primary Care Provider Unavailable Tiff Bhakta MD Primary Care Provider [phone] Melchor Rodríguez MD Primary Care Provider [phone] Reason for Visit * Reason Onset Date Comments Appointment-Internal Referral 02/01/2021 Encounter Details Date Type Department Care Team Description 02/01/2021 Telephone Adult Medicine - [address] [address] Alphonse Angel PA-C [address] [place] [address] Appointment-Internal Referral Social History Tobacco Use Types Packs/Day Years Used Date Smoking Tobacco: Never Smokeless Tobacco: Never Alcohol Use Standard Drinks/Week Comments No 0 (1 standard drink = 0.6 oz pur e alcohol) Sex Assigned at Date Recorded Not on file Job Start Date Occupation Industry Not on file Not on file Not on file COVID-19 Exposure Response Date Recorded In the last month, have you been in contact with someone who was confirmed or suspected to have Coronavirus / COVID-19? No / Unsure 01/15/2021 9:37 AM EDT documented as of this encounter Miscellaneous Notes * Telephone Encounter - Sana Dorsey - 02/01/2021 4:15 PM EDT Referral to Physiatry: FYI to referring. Calls made and letter sent for patient to call and schedule appt. Unable to book at this time. documented in this encounter Plan of Treatment Not on file documented as of this encounter Visit Diagnoses Not on filedocumented in this encounter Care Teams Government Relations Director Relationship Specialty Start Date End Date Jose Abbasi MD PCP - General Internal Medicine 01/18/19 Tiff Bhakta MD [address] [place] [address] PCP - General Internal Medicine 08/27/21 03/26/22 Melchor Rodríguez MD [address] [place] [address] PCP - General Internal Medicine 03/27/22 documented as of this encounter
--- OUTSIDE RECORDS SUMMARY | 2024-11-01 18:39 | XMS_ITS | Encounter Summary ---
Author Organization [facility] Address [address] [place] [address] Care Team Providers Care Lens Marker Name Role Phone Melchor Rodríguez MD Primary Care Provider [phone] Reason for Visit * Reason Comments E-prescribe Rx Request Encounter Details Date Type Department Care Team Description 07/19/2022 Refill Adult Medicine [address] [address] Sarah Meier PA-C [address] [place] [address] E-prescribe Rx Request Social History Tobacco Use [...] encounter Miscellaneous Notes * Telephone Encounter - Raghu Metzger C.M.A. - 07/21/2022 1:14 PM EST LV 04/17/22 Appt with new PCP 11/19/22 * Telephone Encounter - Kisha Bonilla M.A. - 07/21/2022 1:02 PM EST Pt has not established care with new PCP. * Telephone Encounter - Nataly Jeffers - 07/19/2022 8:52 AM EST Patient would like script to be: E-PRESCRIBED/FAXED TO PHARMACY WHEN WAS THE PATIENT'S LAST APPOINTMENT IN ADULT MEDICINE? 04-17-22 WHEN WAS THE LAST TIME THE PATIENT SAW THEIR PCP? Same as above Does patient have an upcoming appointment? Yes 11-19-22 (THE MEDICATION REQUESTED IS ON THE MED [...] N/A Patients current insurance carrier is: Payor: [facility] F[facility] / Plan: [facility] / Product Type: MEDICAID RISK documented in this encounter Plan of Treatment Not on file documented as of this encounter Visit Diagnoses Not on filedocumented in this encounter Care Teams Lens Marker Relationship Specialty Start Date End Date Melchor Rodríguez MD [address] [place] [address] PCP - General Internal Medicine 03/27/22 documented as of this encounter
--- OUTSIDE RECORDS SUMMARY | 2024-11-01 18:39 | XMS_ITS | Encounter Summary ---
[facility] Organization [facility] Address [address] [place] [address] Care Team Providers Care Logistics Solution Manager Name Role Phone Melchor Rodríguez MD Primary Care Provider [phone] Reason for Visit * Reason Comments E-prescribe Rx Request Encounter Details Date Type Department Care Team Description 10/15/2022 Refill Adult Medicine [facility] [address] [place] [address] Sarah Meier PA-C [address] [place] [address] E-prescribe Rx Request Social History Tobacco Use [...] encounter Miscellaneous Notes * Telephone Encounter - Amber Flower M.A. - 10/15/2022 10:14 AM EST Lab Results Component Value Date NA 142 10/16/2021 K 3.9 10/16/2021 CO2 28 10/16/2021 CL 108 10/16/2021 BUN 9 10/16/2021 CREAT 0.93 10/16/2021 GLU 91 10/16/2021 CA 9.0 10/16/2021 GFR > 60 10/16/2021 MARY w/Sarah Meier 04/17/2022 MARY w/PCP not on file Next OV w/PCP 11/19/2022 * Telephone Encounter - Kisha Bonilla M.A. - 10/15/2022 10:02 AM EST Pt has not established care with new PCP * Telephone Encounter - Nataly Orlando - 10/15/2022 6:58 AM EST Patient would like script to be: E-PRESCRIBED/FAXED TO PHARMACY WHEN WAS THE PATIENT'S LAST APPOINTMENT IN ADULT MEDICINE? 04-17-22 WHEN WAS THE LAST TIME THE PATIENT SAW THEIR PCP? Same as above Does patient have an upcoming appointment? No a letter will need to be sent out (THE MEDICATION REQUESTED IS ON THE MED [...] N/A Patients current insurance carrier is: Payor: [facility] FFS / Plan: [facility] / Product Type: MEDICAID RISK documented in this encounter Plan of Treatment Not on file documented as of this encounter Visit Diagnoses Not on filedocumented in this encounter Care Teams Logistics Solution Manager Relationship Specialty Start Date End Date Melchor Rodríguez MD [address] [place] [address] PCP - General Internal Medicine 03/27/22 documented as of this encounter
--- OUTSIDE RECORDS SUMMARY | 2024-11-01 18:39 | XMS_ITS | Clinical Summary ---
Author Organization [facility] Address [address] [place] [address] Care Team Providers Care Nail Kegger Name Role Phone Zuleima Mcclain MD Primary Care Provider + Allergies Active Allergy Reactions Criticality Noted Date Comments Erythromycin Rash Medium 03/18/2018 Other reaction(s): Rash/Dermatitis, Unknown/Patient and Family Unable to Define Morenci Hives 04/28/2018 Sumatriptan Anaphylaxis High 03/18/2018 welts Tizanidine Other (See Comments) Medium 03/18/2018 Hallucinations Other reaction(s): hallucinations Tomato Hives 04/28/2018 And strawberry. Medications Medication Sig Dispensed Refills Start Date End Date Status buPROPion (WELLBUTRIN XL) 300 MG 24 hr tablet Take 300 mg by mouth daily. 0 Active FLUoxetine (PROZAC) 10 MG capsule Take 10 mg by mouth daily. 0 Active sertraline (ZOLOFT) 100 MG tablet Take 200 mg by mouth daily. 0 Active omeprazole (PRILOSEC) 20 MG capsule Take 20 mg by mouth daily. 0 Active Fexofenadine HCl (ANNY PO) Take by mouth. 0 Active Magnesium Oxide (MAG-200 PO) Take by mouth. 0 Active ondansetron (ZOFRAN-ODT) disintegrating tablet Take 1 tablet (8 mg total) by mouth every 8 (eight) hours as needed for nausea. 20 tablet 0 04/28/2018 Active Additional Information Patient not taking.Reason: Other, Reported on 07/11/2019 prazosin (MINIPRESS) 2 MG capsule Take 2 mg by mouth every night at bedtime. 0 Active lisinopril (PRINIVIL,ZESTRIL) tablet 2.5 mg Take 2.5 mg by mouth daily. 0 Active famotidine (PEPCID) 20 MG tablet Take 20 mg by mouth 2 (two) times a day. 0 Active gabapentin (NEURONTIN) 300 MG capsule Take 300 mg by mouth 3 (three) times a day. 0 Active cetirizine (ZyrTEC) 10 MG tablet Take 10 mg by mouth daily. 0 Active Family History Medical History Relation Name Comments Scoliosis Brother Arthritis Father Heart disease Father Arthritis Mother Cancer Mother Heart disease Mother Hypertension Mother Scoliosis Mother Anesthesia problems Sister Scoliosis Sister Relation Name Status Comments Brother Father Mother Sister Social History Tobacco Use Types Packs/Day Years Used Date Smoking Tobacco: Never Smokeless Tobacco: Never Alcohol Use Standard Drinks/Week Comments No 0 (1 standard drink = 0.6 oz pur e alcohol) Sex and Gender Information Value Date Recorded Sex Assigned at Not on file Gender Identity Not on file Sexual Orientation Not on file Last Filed Vital Signs Vital Sign Reading Time Taken Comments Blood Pressure 104/78 04/28/2018 10:03 PM EDT Pulse 66 04/28/2018 10:03 PM EDT Temperature 36.6 ??C (97.9 ??F) 04/28/2018 10:03 PM E DT Respiratory Rate 18 04/28/2018 10:03 PM EDT Oxygen Saturation 97% 04/28/2018 10:03 PM EDT Inhaled Oxygen Concentration - - Weight 90.7 kg (200 lb) 07/11/2019 11:12 AM EST Height 175.3 cm (5' 9 ) 07/11/2019 11:12 AM EST Body Mass Index 29.53 07/11/2019 11:12 AM EST Plan of Treatment Health Maintenance Due Date Last Done Comments Hepatitis B Vaccines (1 of 3 - 3-dose series) 1968 Hepatitis C Screening 1968 COVID-19 Vaccine (#1) 05/18/1969 Depression Screening 1980 BMI Counseling 1986 Preventative Health Evaluation 1986 DTap / Tdap / Td (1 - Tdap) 11/16/1987 Cervical Cancer Screening (P ap Smear) 1989 Colon Cancer Screening (Colonoscopy) 2013 Breast Cancer Screening (Mammogram) 2018 Shingrix-Zoster Vaccine (1 of 2) 2018 Influenza Vaccine (#1) 2024 Pneumococcal Vaccine Aged Out No long er eligible based on patient's age to complete this topic RSV Ped < 20 months Aged Out No longe r eligible based on patient's age to complete this topic Care Teams Nail Kegger Relationship Specialty Start Date End Date Zuleima Mcclain MD [address] [facility] [address] [facility] [place] [address] PCP - General Internal Medicine 04/29/19
--- OUTSIDE RECORDS SUMMARY | 2024-11-01 18:39 | XMS_ITS | Encounter Summary ---
Author Organization [employer] [facility] Address [address] [place] [address] Care Team Providers Care Archivist Name Role Phone Melchor Rodríguez MD Primary Care Provider [phone] Encounter Details Date Type Department Care Team Description 05/27/2023 [facility] Report Medical Records [address] [place] [address] Ashkan Millard Social History Tobacco Use Types Packs/Day Years Used Date Smoking Tobacco: Never Smokeless Tobacco: Never Alcohol Use Standard Drinks/Week Comments No 0 (1 standard drink = 0.6 oz pur e alcohol) Sex Assigned at Date Recorded Not on file Job Start Date Occupation Industry Not on file Not on file Not on file COVID-19 Exposure Response Date Recorded In the last 10 days, have yo u been in contact with someone who was confirmed or suspected to have Coronavirus/COVID-19? No / Unsure 05/11/2023 9:50 AM EDT documented as of this encounter Plan of Treatment Not on file documented as of this encounter Visit Diagnoses Not on filedocumented in this encounter Care Teams Archivist Relationship Specialty Start Date End Date Melchor Rodríguez MD [address] [place] [address] PCP - General Internal Medicine 03/27/22 documented as of this encounter
--- OUTSIDE RECORDS SUMMARY | 2024-11-01 18:39 | XMS_ITS | Encounter Summary ---
Author Organization [facility] Address [address] [place] [address] Care Team Providers Care Installer Metal Flooring Name Role Phone Melchor Rodríguez MD Primary Care Provider [phone] Encounter Details Date Type Department Care Team Description 02/23/2024 Orders Only Medical Records [address] [place] [address] Harvey Jimenez NP Social History Tobacco Use Types Packs/Day Years [...] on file documented as of this encounter Procedures Procedure Name Priority Date/Time Associated Diagnosis Comments OUTSIDE MRI/MRA Routine 01/27/2024 documented in this encounter Results * OUTSIDE MRI/MRA (01/27/2024) Harvey Jimenez NP RADIOLOGY documented in this encounter Visit Diagnoses Not on filedocumented in this encounter Care Teams Installer Metal Flooring Relationship Specialty Start Date End Date Melchor Rodríguez MD [address] [place] [address] PCP - General Internal Medicine 03/27/22 documented as of this encounter
--- OUTSIDE RECORDS SUMMARY | 2024-11-01 18:39 | XMS_ITS | Encounter Summary ---
Author Organization [facility] Address [address] [place] [address] Care Team Providers Care Social Professionals Name Role Phone Jose Abbasi MD Primary Care Provider Unavailable Tiff Bhakta MD Primary Care Provider [phone] Melchor Rodríguez MD Primary Care Provider Encounter Details Date Type Department Care Team Description 05/30/2020 Orders Only Medicine/Pediatrics - [address] [address] Jose Abbasi MD Preoperative examination; Screening for deficiency anemia Social History Tobacco Use Types Packs/Day Years [...] on file documented as of this encounter Results * (ABNORMAL) URINALYSIS, ROUTINE (06/12/2020 9:48 AM EDT) GLUCOSE, URINE (UA) NEGATIVE NEGATIVE mg/dL 06/12/2020 12:44 PM EDT [facility] BILIRUBIN URINE NEGATIVE NEGATIVE 06/12/2020 12:44 PM EDT [facility] KETONE, URINE NEGATIVE NEGATIVE mg/dL 06/12/2020 12:44 PM EDT [facility] SPECIFIC GRAVITY, URINE 1.019 1.003 - 1.030 06/12/2020 12:44 PM EDT [facility] BLOOD, URINE NEGATIVE NEGATIVE 06/12/2020 12:44 PM EDT [facility] PH, URINE 5.5 5.0 - 8.0 06/12/2020 12:44 PM EDT [facility] PROTEIN, URINE NEGATIVE <= TRACE mg/dl 06/12/2020 12:44 PM EDT [facility] UROBILINOGEN, URINE 0.2 0.2 - 1.0 E.U./dL 06/12/2020 12:44 PM EDT [facility] NITRITE,URINE NEGATIVE NEGATIVE 06/12/2020 12:44 PM EDT [facility] LEUKOCYTE ESTERASE, URINE LARGE(A) NEGATIVE 06/12/2020 12:44 PM EDT [facility] RBC-Urine 4 0 - 4 /HPF 06/12/2020 12:46 PM EDT [facility] WBC-Urine 33(H) 0 - 4 /HPF 06/12/2020 12:46 PM EDT [facility] EPITH CELLS, URINE 66(H) 0 - 60 /LPF 06/12/2020 12:46 PM EDT [facility] BACTERIA, URINE NEGATIVE NEGATIVE 06/12/2020 12:46 PM EDT [facility] HYALINE CAST, URINE 7(H) 0 - 3 /LPF 06/12/2020 12:46 PM EDT [facility] 06/12/2020 9:48 AM EDT 06/12/2020 9:53 AM EDT Jose Abbasi MD LAB [facility] * (ABNORMAL) BASIC METABOLIC PANEL (06/12/2020 9:48 AM EDT) [facility] GLUCOSE 154(H) 70 - 100 mg/dL 06/12/2020 12:57 PM EDT [facility] Comment:Reference range appl icable to fasting specimens only Blood Urea Nitrogen 9 5 - 25 mg/dL 06/12/2020 12:57 PM EDT [facility] CREAT 1.20(H) 0.5 - 1.1 mg/dL 06/12/2020 12:57 PM EDT [facility] GLOMERULAR FILTRATION RATE 47 06/12/2020 12:57 PM EDT [facility] Comment: If patient is -Algerian, multiply result by 1.21 Chronic Kidney Disease: < 60 ml/min/1.73 square meters Kidney Failure: < 15 ml/min/1.73 square meters NA 140 135 - 145 mEq/L 06/12/2020 12:57 PM EDT [facility] K 4.0 3.5 - 5.5 mmol/L 06/12/2020 12:57 PM EDT [facility] CL 106 96 - 110 mmol/L 06/12/2020 12:57 PM EDT [facility] CARBON DIOXIDE (CO2) 27 21 - 32 mmol/L 06/12/2020 12:57 PM EDT [facility] ANION GAP 7 3 - 11 06/12/2020 12:57 PM EDT [facility] CALCIUM 9.0 8.5 - 10.5 mg/dL 06/12/2020 12:57 PM EDT [facility] 06/12/2020 9:48 AM EDT 06/12/2020 9:53 AM EDT Jose Abbasi MD LAB [facility] * (ABNORMAL) CBC (AUTO DIFF PLATELET) (06/12/2020 9:48 AM EDT) WHITE BLOOD COUNT 5.4 4.8 - 10.8 x10-3/uL 06/12/2020 12:47 PM EDT [facility] RED BLOOD COUNT 5.3(H) 3.8 - 4.8 x10-6/uL 06/12/2020 12:47 PM EDT [facility] Hemoglobin 14.9 11.5 - 16.0 g/dL 06/12/2020 12:47 PM EDT [facility] Hematocrit 46.7 35 - 47 % 06/12/2020 12:47 PM EDT [facility] MEAN CORPUSCULAR VOLUME 88.8 79 - 98 fL 06/12/2020 12:47 PM EDT [facility] HEMOGLOBIN 28.3 27 - 32 pg 06/12/2020 12:47 PM EDT [facility] HGB CONC 31.9(L) 32 - 37 g/dL 06/12/2020 12:47 PM EDT [facility] RED CELL DISTRIBUTION WIDTH 13.3 11 - 15 % 06/12/2020 12:47 PM EDT [facility] PLT COUNT 170 130 - 400 x10-3/uL 06/12/2020 12:47 PM EDT [facility] MEAN PLATELET VOLUME 11.2(H) 7 - 11 fL 06/12/2020 12:47 PM EDT [facility] NRBC % AUTO 0.0 <1 % 06/12/2020 12:47 PM EDT [facility] NEUTROPHILS % 66.2 % 06/12/2020 12:47 PM EDT [facility] LYMPH % 26.6 % 06/12/2020 12:47 PM EDT [facility] MONO % 5.2 % 06/12/2020 12:47 PM EDT [facility] EOS % 0.9 % 06/12/2020 12:47 PM EDT [facility] BASO % 0.7 % 06/12/2020 12:47 PM EDT [facility] IMMATURE GRANULOCYTES % 0.4 % 06/12/2020 12:47 PM EDT [facility] NRBC # AUTO 0.00 <0.1 x10-3/uL 06/12/2020 12:47 PM EDT [facility] NEUT # 3.58 1.5 - 7.0 x10-3/uL 06/12/2020 12:47 PM EDT [facility] LYMPH # 1.44 1 - 5.0 x10-3/uL 06/12/2020 12:47 PM EDT [facility] MONO # 0.28 0.2 - 1.0 x10-3/uL 06/12/2020 12:47 PM EDT [facility] EOS # 0.05 0 - 0.5 x10-3/uL 06/12/2020 12:47 PM EDT [facility] BASO # 0.04 0 - 0.2 x10-3/uL 06/12/2020 12:47 PM EDT [facility] IMMATURE GRANULOCYTES # 0.02 0 - 0.03 x10-3/uL 06/12/2020 12:47 PM EDT [facility] 06/12/2020 9:48 AM EDT 06/12/2020 9:53 AM EDT Jose Abbasi MD LAB [facility] documented in this encounter Visit Diagnoses Diagnosis Preoperative examination Preoperative examination, unspecified Screening for deficiency anemia Screening for other and unspecified deficiency anemia documented in this encounter Care Teams Social Professionals Relationship Specialty Start Date End Date Jose Abbasi MD PCP - General Internal Medicine 01/18/19 Tiff Bhakta MD [address] [place] [address] PCP - General Internal Medicine 08/27/21 03/26/22 Melchor Rodríguez MD [address] [place] [address] PCP - General Internal Medicine 03/27/22 documented as of this encounter
--- OUTSIDE RECORDS SUMMARY | 2024-11-01 18:39 | XMS_ITS | Encounter Summary ---
Author Organization [facility] Address [address] [place] [address] Care Team Providers Care Sports Physical Therapist Name Role Phone Melchor Rodríguez MD Primary Care Provider [phone] Encounter Details Date Type Department Care Team Description 06/06/2024 Orders Only Medical Records [address] [place] [address] Lydia Mcelroy NP Social History Tobacco Use Types Packs/Day [...] Name Priority Date/Time Associated Diagnosis Comments OUTSIDE ULTRASOUND Routine 05/30/2024 documented in this encounter Results * OUTSIDE ULTRASOUND (05/30/2024) Lydia Mcelroy NP RADIOLOGY documented in this encounter Visit Diagnoses Not on filedocumented in this encounter Care Teams Sports Physical Therapist Relationship Specialty Start Date End Date Melchor Rodríguez MD [address] [place] [address] PCP - General Internal Medicine 03/27/22 documented as of this encounter
--- OUTSIDE RECORDS SUMMARY | 2024-11-01 18:39 | XMS_ITS | Encounter Summary ---
Author Organization [facility] Address [address] [place] [address] Care Team Providers Care Trauma Manager Name Role Phone Jose Abbasi MD Primary Care Provider Unavailable Tiff Bhakta MD Primary Care Provider [phone] Melchor Rodríguez MD Primary Care Provider [phone] Encounter Details Date Type Department Care Team Description 09/21/2020 Home Health Certification Medical Records [address] [place] [address] Homecare, [facility] [address] [place] [phone] Social History Tobacco Use Types Packs/Day Years [...] on filedocumented in this encounter Care Teams Trauma Manager Relationship Specialty Start Date End Date Jose Abbasi MD PCP - General Internal Medicine 01/18/19 Tiff Bhakta MD [address] [place] [address] PCP - General Internal Medicine 08/27/21 03/26/22 Melchor Rodríguez MD [address] [place] [address] PCP - General Internal Medicine 03/27/22 documented as of this encounter
--- OUTSIDE RECORDS SUMMARY | 2024-11-01 18:39 | XMS_ITS | Encounter Summary ---
Author Organization [facility] Address [address] [place] [address] Care Team Providers Care Ultrasound Technologist Sonographer Name Role Phone Jose Abbasi MD Primary Care Provider Unavailable Tiff Bhakta MD Primary Care Provider [phone] Melchor Rodríguez MD Primary Care Provider [phone] Encounter Details Date Type Department Care Team Description 04/16/2020 Orders Only Medical Records [address] [place] [address] Andrews Mann MD [address] [place] [address] Social History Tobacco Use Types Packs/Day Years [...] Date/Time Associated Diagnosis Comments OUTSIDE MRI/MRA Routine 04/16/2020 documented in this encounter Results * OUTSIDE MRI/MRA (04/16/2020) Andrews Mann MD RADIOLOGY documented in this encounter Visit Diagnoses Not on filedocumented in this encounter Care Teams Ultrasound Technologist Sonographer Relationship Specialty Start Date End Date Jose Abbasi MD PCP - General Internal Medicine 01/18/19 Tiff Bhakta MD [address] [place] [address] PCP - General Internal Medicine 08/27/21 03/26/22 Melchor Rodríguez MD [address] [place] [address] PCP - General Internal Medicine 03/27/22 documented as of this encounter
--- OUTSIDE RECORDS SUMMARY | 2024-11-01 18:39 | XMS_ITS | Encounter Summary ---
[facility] Address [address] [place] [address] Care Team Providers Care Photo Mask Processor Name Role Phone Jose Abbasi MD Primary Care Provider Unavailable Tiff Bhakta MD Primary Care Provider [phone] Melchor Rodríguez MD Primary Care Provider [phone] Encounter Details Date Type Department Care Team Description 03/25/2019 SCAN Medical Records [address] [place] [address] Abstract, Provider Social History Tobacco Use Types [...] on filedocumented in this encounter Care Teams Photo Mask Processor Relationship Specialty Start Date End Date Jose Abbasi MD PCP - General Internal Medicine 01/18/19 Tiff Bhakta MD [address] [place] [address] PCP - General Internal Medicine 08/27/21 03/26/22 Melchor Rodríguez MD [address] [place] [address] PCP - General Internal Medicine 03/27/22 documented as of this encounter
--- OUTSIDE RECORDS SUMMARY | 2024-11-01 18:39 | XMS_ITS | Encounter Summary ---
Author Organization [facility] Address [address] [place] [address] Care Team Providers Care Title Supervisor Name Role Phone Jose Abbasi MD Primary Care Provider Unavailable Tiff Bhakta MD Primary Care Provider [phone] Melchor Rodríguez MD Primary Care Provider [phone] Reason for Visit * Reason Onset Date Comments Orders Call 07/24/2020 Encounter Details Date Type Department Care Team Description 07/24/2020 Telephone Adult Medicine - [address] [address] Jose Abbasi MD Orders Call Social History Tobacco Use Types Packs/Day Years [...] encounter Miscellaneous Notes * Telephone Encounter - Jose Abbasi MD - 07/25/2020 4:56 PM EST signed * Telephone Encounter - Chris Montgomery M.A. - 07/25/2020 11:42 AM EST Form to pcp for signature. * Telephone Encounter - Татьяна Corral - 07/24/2020 3:55 PM EST Faxed orders received from [facility] for senior care for 2 visits a week for 9 weeks, and 3 PRN's for acutre health changes. Original placed in forms bin in call center. Kita pichardo. documented in this encounter Plan of Treatment Not on file documented as of this encounter Visit Diagnoses Not on filedocumented in this encounter Care Teams Title Supervisor Relationship Specialty Start Date End Date Jose Abbasi MD PCP - General Internal Medicine 01/18/19 Tiff Bhakta MD [address] [place] [address] PCP - General Internal Medicine 08/27/21 03/26/22 Melchor Rodríguez MD [address] [place] [address] PCP - General Internal Medicine 03/27/22 documented as of this encounter
--- OUTSIDE RECORDS SUMMARY | 2024-11-01 18:39 | XMS_ITS | Encounter Summary ---
Author Organization [facility] Address [address] [place] [address] Care Team Providers Care Materials Research Engineer Name Role Phone Melchor Rodríguez MD Primary Care Provider [phone] Reason for Visit * Reason Comments E-prescribe Rx Request Encounter Details Date Type Department Care Team Description 09/12/2022 Refill Adult Medicine [address] [address] Jenni Brady PA [address] [place] [address] E-prescribe Rx Request Social History Tobacco Use [...] encounter Miscellaneous Notes * Telephone Encounter - Brynn Mednia M.A. - 09/18/2022 9:32 AM EST Sarah, Last OV with you 04/17/22, has 56 month follow up with new PCP. Will you refill until seen? Last refilled by you on 06/02/22 #90 w/ 2 refills NOV 11/19/22 - new PCP -please review and advise, thank you. * Telephone Encounter - Alanna Rizo 09/18/2022 9:21 AM EST tori documented in this encounter Plan of Treatment Not on file documented as of this encounter Visit Diagnoses Not on filedocumented in this encounter Care Teams Materials Research Engineer Relationship Specialty Start Date End Date Melchor Rodríguez MD [address] [place] [address] PCP - General Internal Medicine 03/27/22 documented as of this encounter
--- OUTSIDE RECORDS SUMMARY | 2024-11-01 18:39 | XMS_ITS | Encounter Summary ---
Author Organization [facility] Address [address] [place] [address] Care Team Providers Care Acute Care Nurse Practitioner Name Role Phone Jose Abbasi MD Primary Care Provider Unavailable Tiff Bhakta MD Primary Care Provider [phone] Melchor Rodríguez MD Primary Care Provider [phone] Encounter Details Date Type Department Care Team Description 06/24/2019 Orders Only Medical Records [address] [place] [address] Abstract, Provider Social History Tobacco Use Types [...] Date/Time Associated Diagnosis Comments OUTSIDE MRI/MRA Routine 06/24/2019 documented in this encounter Results * OUTSIDE MRI/MRA (06/24/2019) Andrews Mann MD RADIOLOGY documented in this encounter Visit Diagnoses Not on filedocumented in this encounter Care Teams Acute Care Nurse Practitioner Relationship Specialty Start Date End Date Jose Abbasi MD PCP - General Internal Medicine 01/18/19 Tiff Bhakta MD [address] [place] [address] PCP - General Internal Medicine 08/27/21 03/26/22 Melchor Rodríguez MD [address] [place] [address] PCP - General Internal Medicine 03/27/22 documented as of this encounter
--- OUTSIDE RECORDS SUMMARY | 2024-11-01 18:39 | XMS_ITS | Encounter Summary ---
Author Organization [facility] Address [address] [place] [address] Care Team Providers Care Correctional Program Specialist Name Role Phone Melchor Rodríguez MD Primary Care Provider [phone] Reason for Visit * Reason Comments E-prescribe Rx Request Encounter Details Date Type Department Care Team Description 08/14/2022 Refill Adult Medicine [facility] [address] [place] [address] Sarah Meier PA-C [address] [place] [address] E-prescribe Rx Request Social History Tobacco Use [...] Telephone Encounter - Amber Flower M.A. - 08/19/2022 10:20 AM EST Lab Results Component Value Date NA 142 10/16/2021 K 3.9 10/16/2021 CO2 28 10/16/2021 CL 108 10/16/2021 BUN 9 10/16/2021 CREAT 0.93 10/16/2021 GLU 91 10/16/2021 CA 9.0 10/16/2021 GFR > 60 10/16/2021 MARY w/Sarah Meier 04/17/2022 MARY w/PCP not on file Next OV w/PCP 11/19/2022 * Telephone Encounter - My Alvarado - 08/19/2022 8:28 AM EST Patient would like script to be: E-PRESCRIBED/FAXED TO PHARMACY WHEN WAS THE PATIENT'S LAST APPOINTMENT IN ADULT MEDICINE? 04/17/22 WHEN WAS THE LAST TIME THE PATIENT SAW THEIR PCP? Same as above Does patient have an upcoming appointment? Yes 11/19/22 (THE MEDICATION REQUESTED IS ON THE MED [...] N/A Patients current insurance carrier is: Payor: [facility] / Plan: [facility] / Product Type: MEDICAID RISK documented in this encounter Plan of Treatment Not on file documented as of this encounter Visit Diagnoses Not on filedocumented in this encounter Care Teams Correctional Program Specialist Relationship Specialty Start Date End Date Melchor Rodríguez MD [address] [place] [address] PCP - General Internal Medicine 03/27/22 documented as of this encounter
--- OUTSIDE RECORDS SUMMARY | 2024-11-01 18:39 | XMS_ITS | Encounter Summary ---
Author Organization [facility] Address [address] [place] [address] Care Team Providers Care Metal Machine Operator Name Role Phone Jose Abbasi MD Primary Care Provider Unavailable Tiff Bhakta MD Primary Care Provider [phone] Melchor Rodríguez MD Primary Care Provider Reason for Visit * Reason Onset Date Comments Medication 11/03/2019 Colonoscopy Encounter Details Date Type Department Care Team Description 11/03/2019 Refill Gastroenterology - [address] [place] [address] Arthur Corbett MD [address] [place] [phone] Medication (Colonoscopy) Social History Tobacco Use Types Packs/Day Years [...] on filedocumented in this encounter Care Teams Metal Machine Operator Relationship Specialty Start Date End Date Jose Abbasi MD PCP - General Internal Medicine 01/18/19 Tiff Bhakta MD [address] [place] [address] PCP - General Internal Medicine 08/27/21 03/26/22 Melchor Rodríguez MD [address] [place] [address] PCP - General Internal Medicine 03/27/22 documented as of this encounter
--- OUTSIDE RECORDS SUMMARY | 2024-11-01 18:39 | XMS_ITS | Clinical Summary ---
Author Organization [facility] Address [address] [place] [address] Care Team Providers Care Yield Loss Inspector Name Role Phone Unavailable Primary Care Provider Unavailabl e Allergies Active Allergy Reactions Criticality Noted Date Comments Erythromycin Unknown/Patient and Family Unable to Define Medium 03/18/2018 Sumatriptan Unknown/Patient and Family Unable to Define Medium 03/18/2018 Tizanidine Unknown/Patient and Family Unable to Define Medium 03/18/2018 Medications Medication Sig Dispensed Refills Start Date End Date Status sertraline (ZOLOFT) 100 MG tablet Take 100 mg by mouth daily. Active prazosin (MINIPRESS) 5 MG capsule Take 5 mg by mouth nightly. Active traZODone (DESYREL) 150 MG tablet Take 150 mg by mouth nightly. Active buPROPion (WELLBUTRIN XL) 300 MG 24 hr tablet Take 300 mg by mouth every morning. Swallow whole; do not crush, chew, or divide. Active Fexofenadine HCl (ALLERGY 24-HR PO) Take by mouth. Ac tive OMEprazole (PriLOSEC) 20 MG capsule Take 20 mg by mouth every morning before breakfast. Active benzonatate (TESSALON) 100 MG capsule Take 1 capsule (100 mg total) by mouth 3 (three) times a day as needed for cough. 12 capsule 04/22/2018 Active butalbital-acetamino phen-caffeine (FioriCET, ESGIC) 50-325-40 mg tablet Take 1-2 tablets by mouth every 4 (four) hours as needed for pain. Max: 6 capsules/tablets in 24 hours 15 tablet 06/13/2018 Active metoCLOPRAMIDE (REGLAN) 10 MG tablet Take 1 tablet (10 mg total) by mouth 4 times daily (every 6 hours) as needed for nausea or vomiting (Headache). 15 tablet 06/13/2018 Active Family History Medical History Relation Name Comments Migraines Brother Migraines Mother Relation Name Status Comments Brother Mother Social History Tobacco Use Types Packs/Day Years Used Date Smoking Tobacco: Never Smokeless Tobacco: Never Sex and Gender Information Value Date Recorded Sex Assigned at Not on file Gender Identity Not on file Sexual Orientation Not on file Last Filed Vital Signs Vital Sign Reading Time Taken Comments Blood Pressure 128/84 06/13/2018 10:58 AM EDT Pulse 64 06/13/2018 10:58 AM EDT Temperature 36.4 ??C (97.6 ??F) 06/13/2018 10:58 AM E DT Respiratory Rate 18 06/13/2018 10:58 AM EDT Oxygen Saturation 94% 06/13/2018 10:58 AM EDT Inhaled Oxygen Concentration - - Weight 86.2 kg (190 lb) 06/13/2018 9:13 AM EDT Height - - Body Mass Index - - Plan of Treatment Health Maintenance Due Date Last Done Comments Hepatitis C Virus Screening 1968 HIV Screening 1981 DTaP/Tdap/Td Vaccines (1 - Tdap) 11/16/1987 Hepatitis B Vaccines (1 of 3 - 19+ 3-dose series) 11/16/1987 Pneumococcal Vaccines 50+ (1 of 1 - PCV) 2018 Zoster (Shingles) Vaccine (1 of 2) 2018 COVID-19 Vaccine ( - 2023-2 5 season) 2024 Pneumococcal Vaccine: Pediat justino (0-5 Years) and At-Risk Patients (6 to 49 Years) Aged Out No longer eligible b ased on patient's age to complete this topic
--- OUTSIDE RECORDS SUMMARY | 2024-11-01 18:39 | XMS_ITS | Encounter Summary ---
Author Organization [facility] Address [address] [place] [address] Care Team Providers Care Integrated Circuit Ic Layout Designer Name Role Phone Jose Abbasi MD Primary Care Provider Unavailable Tiff Bhakta MD Primary Care Provider [phone] Melchor Rodríguez MD Primary Care Provider [phone] Encounter Details Date Type Department Care Team Description 04/24/2020 Orders Only Medical Records [address] [place] [address] Arthur Corbett MD [address] [place] [address] Social History Tobacco Use Types Packs/Day Years Used Date Smoking Tobacco: Never Smokeless Tobacco: Never Alcohol Use Standard Drinks/Week Comments No 0 (1 standard drink = 0.6 oz pur e alcohol) Sex Assigned at Date Recorded Not on file Job Start Date Occupation Industry Not on file Not on file Not on file documented as of this encounter Progress Notes * Ray Corbett MD - 04/29/2020 3:10 PM EDT Dear Sushma, The polyp(s) that were removed during your colonoscopy were precancerous, but benign. Fortunately, we removed them and therefore, they will not cause any more problems in the future. Based on the number, the size, and the features of the polyp(s) removed, I recommend a follow-up colonoscopy in 5 years. Before, the 5 years are due, we will send you a reminder in the mail asking you to contact our office to have the colonoscopy scheduled. I would like to personally thank you for allowing us to take care of you. Please don't hesitate to call us for any questions or concerns. Regards, Liat Corbett MD Board Certified Gastroenterology and Internal Medicine Transplant Hepatology [facility] documented in this encounter Plan of Treatment Not on file documented as of this encounter Procedures Procedure Name Priority Date/Time Associated Diagnosis Comments OUTSIDE PATHOLOGY Routine 04/11/2020 documented in this encounter Results * OUTSIDE PATHOLOGY (04/11/2020) H Jaime Corbett MD OUTSIDE LAB documented in this encounter Visit Diagnoses Not on filedocumented in this encounter Care Teams Integrated Circuit Ic Layout Designer Relationship Specialty Start Date End Date Jose Abbasi MD PCP - General Internal Medicine 01/18/19 Tiff Bhakta MD [address] [place] [address] PCP - General Internal Medicine 08/27/21 03/26/22 Melchor Rodríguez MD [address] [place] [address] PCP - General Internal Medicine 03/27/22 documented as of this encounter
--- OUTSIDE RECORDS SUMMARY | 2024-11-01 18:39 | XMS_ITS | Encounter Summary ---
Author Organization [facility] Address [address] [place] [address] Care Team Providers Care Car Chaser Name Role Phone Melchor Rodríguez MD Primary Care Provider [phone] Encounter Details Date Type Department Care Team Description 02/25/2023 Design Printing Machine Setter Report Medical Records [address] [address] Social History Tobacco Use Types Packs/Day Years [...] suspected to have Coronavirus/COVID-19? No / Unsure 02/19/2023 10:12 AM EDT documented as of this encounter Plan of Treatment Not on file documented as of this encounter Visit Diagnoses Not on filedocumented in this encounter Care Teams Car Chaser Relationship Specialty Start Date End Date Melchor Rodríguez MD [address] [place] [address] PCP - General Internal Medicine 03/27/22 documented as of this encounter
--- OUTSIDE RECORDS SUMMARY | 2024-11-01 18:39 | XMS_ITS | Encounter Summary ---
Author Organization [facility] Address [address] [place] [address] Care Team Providers Care Poly Operator Name Role Phone Jose Abbasi MD Primary Care Provider Unavailable Tiff Bhakta MD Primary Care Provider [phone] Melchor Rodríguez MD Primary Care Provider [phone] Encounter Details Date Type Department Care Team Description 12/14/2015 [facility] Medical Records [address] [place] [address] Abstract, Provider Social History Tobacco Use Types [...] on filedocumented in this encounter Care Teams Poly Operator Relationship Specialty Start Date End Date Jose Abbasi MD PCP - General Internal Medicine 01/18/19 Tiff Bhakta MD [address] [place] [address] PCP - General Internal Medicine 08/27/21 03/26/22 Melchor Rodríguez MD [address] [place] [address] PCP - General Internal Medicine 03/27/22 documented as of this encounter
--- OUTSIDE RECORDS SUMMARY | 2024-11-01 18:39 | XMS_ITS | Encounter Summary ---
Author Organization [facility] Address [address] [place] [address] Care Team Providers Care Degreasing Solution Reclaimer Name Role Phone Melchor Rodríguez MD Primary Care Provider [phone] Encounter Details Date Type Department Care Team Description 08/04/2023 Checker Bakery Products Report Medical Records [address] [place] [address] Lowell Chavis Social History Tobacco Use Types Packs/Day Years [...] on filedocumented in this encounter Care Teams Degreasing Solution Reclaimer Relationship Specialty Start Date End Date Melchor Rodríguez MD [address] [place] [address] PCP - General Internal Medicine 03/27/22 documented as of this encounter
--- OUTSIDE RECORDS SUMMARY | 2024-11-01 18:40 | XMS_ITS | Encounter Summary ---
Author Organization [facility] Address [address] [place] [address] Care Team Providers Care Plate Painter Name Role Phone Melchor Rodríguez MD Primary Care Provider [phone] Reason for Visit * Reason Onset Date Comments refill request 03/27/2022 Encounter Details Date Type Department Care Team Description 03/27/2022 Refill Adult Medicine [facility] [address] [place] [address] Tiff Bhakta MD [address] [place] [address] refill request Social History Tobacco Use Types Packs/Day Years [...] encounter Miscellaneous Notes * Telephone Encounter - Ade Esposito - 03/28/2022 3:54 PM EDT Pcp appt NOT until october Patient will need med to cover at least until next visit * Telephone Encounter - Sarah Meier PA-C - 03/27/2022 4:33 PM EDT Okay to wait for PCP. I have never met this patient. Sarah Meier PA-C * Telephone Encounter - Amber Flower M.A. - 03/27/2022 11:05 AM EDT Please advise, thank you. Are you able to fill? * Telephone Encounter - Ana Melendrez PA-C - 03/27/2022 11:04 AM EDT SUPPORT WILL NOT sign for GABAPENTIN. Please reroute all these requests to covering clinical provider. Thank you * Telephone Encounter - Amber Flower M.A. - 03/27/2022 10:57 AM EDT Lab Results Component Value Date NA 142 10/16/2021 K 3.9 10/16/2021 CO2 28 10/16/2021 CL 108 10/16/2021 BUN 9 10/16/2021 CREAT 0.93 10/16/2021 GLU 91 10/16/2021 CA 9.0 10/16/2021 GFR > 60 10/16/2021 MARY 10/14/2021 w/Jenni Brady MARY w/PCP not on file Next OV 04/17/2022 w/Sarah Meier Next OV w/PCP 11/19/2022 Pls review in Jenni Brady's absence, thank you. * Telephone Encounter - Madison Chapman - 03/27/2022 10:04 AM EDT Patient would like script to be: E-PRESCRIBED/FAXED TO PHARMACY - pt is leaving on 03-30-22 on vacation returning on 04-08-22 - and pt is going to be out of medication while on vacation if not refilled prior to leaving - pt requests call back if any questions concerning these rxs requests WHEN WAS THE PATIENT'S LAST APPOINTMENT IN ADULT MEDICINE? 10-14-21 WHEN WAS THE LAST TIME THE PATIENT SAW THEIR PCP? Has not seen pcp yet Does patient have an upcoming appointment? Yes 04-17-22 (THE MEDICATION REQUESTED IS ON THE MED LIST ABOVE) All of the medications requested were on the CURRENT MEDS list Did you check the Pharmacy information above?: YES Patient wants: 90 days supply with 1 refill Is this a mail order prescription request ? NO If the refill is from a FAXED refill request what is the RX # listed on the fax? N/A Patients current insurance carrier is: Payor: [facility] FFS / Plan: [facility] / Product Type: MEDICAID RISK documented in this encounter Plan of Treatment Not on file documented as of this encounter Visit Diagnoses Not on filedocumented in this encounter Care Teams Plate Painter Relationship Specialty Start Date End Date Melchor Rodríguez MD [address] [place] [address] PCP - General Internal Medicine 03/27/22 documented as of this encounter
--- OUTSIDE RECORDS SUMMARY | 2024-11-01 18:40 | XMS_ITS | Encounter Summary ---
[facility] Address [address] [place] [address] Care Team Providers Care Acute Care Occupational Therapist Name Role Phone Melchor Rodríguez MD Primary Care Provider [phone] Reason for Visit * Reason Comments E-prescribe Rx Request Encounter Details Date Type Department Care Team Description 04/29/2022 Refill Adult Medicine [address] [address] Patrice Dozier MD [address] [place] [address] [id number] E-prescribe Rx Request Social History Tobacco Use [...] suspected to have Coronavirus/COVID-19? No / Unsure 04/17/2022 9:19 AM EDT documented as of this encounter Miscellaneous Notes * Telephone Encounter - Amber Flower M.A. - 04/30/2022 2:48 PM EDT Lab Results Component Value Date NA 142 10/16/2021 K 3.9 10/16/2021 CO2 28 10/16/2021 CL 108 10/16/2021 BUN 9 10/16/2021 CREAT 0.93 10/16/2021 GLU 91 10/16/2021 CA 9.0 10/16/2021 GFR > 60 10/16/2021 MARY 04/17/2022 w/Sarah HERNANDEZ w/PCP not on file Next OV 11/19/2022 w/PCP * Telephone Encounter - Bonita Price - 04/30/2022 2:32 PM EDT Patient would like script to be: E-PRESCRIBED/FAXED TO PHARMACY WHEN WAS THE PATIENT'S LAST APPOINTMENT IN ADULT MEDICINE? 04/17/22 WHEN WAS THE LAST TIME THE PATIENT SAW THEIR PCP? Never seen pcp Does patient have an upcoming appointment? Yes [...] N/A Patients current insurance carrier is: Payor: [facility] FFS / [facility] / Product Type: MEDICAID RISK documented in this encounter Plan of Treatment Not on file documented as of this encounter Visit Diagnoses Not on filedocumented in this encounter Care Teams Acute Care Occupational Therapist Relationship Specialty Start Date End Date Melchor Rodríguez MD [address] [place] [address] PCP - General Internal Medicine 03/27/22 documented as of this encounter
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
== END ==
PROVIDERS: PCP Internal Medicine; Visit Provider Psychiatry & Neurology Neurology
DX: G43.719 Chronic migraine without aura, intractable, without status migrainosus (principal)
CPT/HCPCS: 64615

== ENCOUNTER 2025-02-07 08:34 | Outpatient (AMB) | payer OTHER, SELFPAY ==
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
[2025-02-07 08:48] VITALS: BMI 35.0
== END 2025-02-07 09:04 | disposition home or self-care (01) ==
LOC: HO.HSMS 08:35
PROVIDERS: PCP Internal Medicine; Visit Provider Psychiatry & Neurology Neurology
DX: G43.719 Chronic migraine without aura, intractable, without status migrainosus (principal)
CPT/HCPCS: 64615

== ENCOUNTER → 2025-02-07 08:34 | Outpatient (BNVA) | payer OTHER, SELFPAY | PROVIDERS: PCP Internal Medicine; Visit Provider Psychiatry & Neurology Neurology | DX: G43.719 Chronic migraine without aura, intractable, without status migrainosus (principal); I12.9 Hypertensive chronic kidney disease with stage 1 through stage 4 chronic kidney disease, or unspecified chronic kidney disease; N18.9 Chronic kidney disease, unspecified; M54.9 Dorsalgia, unspecified; K21.9 Gastro-esophageal reflux disease without esophagitis; F32.A Depression, unspecified; F41.9 Anxiety disorder, unspecified; Z79.82 Long term (current) use of aspirin | CPT/HCPCS: 64615; 99211; J0585 ==

== ENCOUNTER 2025-05-09 09:05 | Outpatient (AMB) | payer OTHER, SELFPAY ==
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
[2025-05-09 09:14] VITALS: BP 138/94; PULSE 66; O2SAT 96; BMI 32.9
--- OUTSIDE RECORDS SUMMARY | 2025-05-09 10:26 | XMS_ITS | Encounter Summary ---
Author Organization [facility] Address [address] [place] [address] Care Team Providers Care City Manager Name Role Phone Jose Abbasi MD Primary Care Provider Unavailable Tiff Bhakta MD Primary Care Provider [phone] Melchor Rodríguez MD Primary Care Provider [phone] Encounter Details Date Type Department Care Team Description 02/21/2019 [facility] Medical Records [address] [place] [id number] Abstract, Provider Social History Tobacco Use Types [...] on filedocumented in this encounter Care Teams City Manager Relationship Specialty Start Date End Date Jose Abbasi MD PCP - General Internal Medicine 01/18/19 Tiff Bhakta MD [address] [place] [address] PCP - General Internal Medicine 08/27/21 03/26/22 Melchor Rodríguez MD [address] [place] [address] PCP - General Internal Medicine 03/27/22 documented as of this encounter
--- OUTSIDE RECORDS SUMMARY | 2025-05-09 10:26 | XMS_ITS | Encounter Summary ---
Author Organization [facility] Address [address] [place] [address] Care Team Providers Care Scientific Illustrator Name Role Phone Jose Abbasi MD Primary Care Provider Unavailable Tiff Bhakta MD Primary Care Provider Melchor Rodríguez MD Primary Care Provider [phone] Encounter Details Date Type Department Care Team Description 02/11/2018 [facility] Medical Records [address] [place] [address] Abstract, Provider Social History Tobacco Use Types [...] on filedocumented in this encounter Care Teams Scientific Illustrator Relationship Specialty Start Date End Date Jose Abbasi MD PCP - General Internal Medicine 01/18/19 Tiff Bhakta MD [address] [place] [address] PCP - General Internal Medicine 08/27/21 03/26/22 Melchor Rodríguez MD [address] [place] [address] PCP - General Internal Medicine 03/27/22 documented as of this encounter
--- OUTSIDE RECORDS SUMMARY | 2025-05-09 10:26 | XMS_ITS | Encounter Summary ---
Author Organization [facility] Address [address] [place] [address] Care Team Providers Care Manometer Technician Name Role Phone Jose Abbasi MD Primary Care Provider Unavailable Tiff Bhakta MD Primary Care Provider [phone] Melchor Rodríguez MD Primary Care Provider [phone] Encounter Details Date Type Department Care Team Description 01/07/2017 [facility] Medical Records [address] [place] [address] Abstract, Provider Social History Tobacco Use Types [...] on filedocumented in this encounter Care Teams Manometer Technician Relationship Specialty Start Date End Date Jose Abbasi MD PCP - General Internal Medicine 01/18/19 Tiff Bhakta MD [address] [place] [address] PCP - General Internal Medicine 08/27/21 03/26/22 Melchor Rodríguez MD [address] [place] [address] PCP - General Internal Medicine 03/27/22 documented as of this encounter
--- OUTSIDE RECORDS SUMMARY | 2025-05-09 10:26 | XMS_ITS | Encounter Summary ---
[facility] Organization [facility] Address [address] [place] [address] Care Team Providers Care Microsoft Exchange Architect Name Role Phone Jose Abbasi MD Primary Care Provider Unavailable Tiff Bhakta MD Primary Care Provider [phone] Melchor Rodríguez MD Primary Care Provider [phone] Encounter Details Date Type Department Care Team Description 12/13/2018 [facility] Medical Records [address] [place] [address] Abstract, Provider Social History Tobacco Use Types [...] on filedocumented in this encounter Care Teams Microsoft Exchange Architect Relationship Specialty Start Date End Date Jose Abbasi MD PCP - General Internal Medicine 01/18/19 Tiff Bhakta MD [address] [place] [address] PCP - General Internal Medicine 08/27/21 03/26/22 Melchor Rodríguez MD [address] [place] [address] PCP - General Internal Medicine 03/27/22 documented as of this encounter
--- OUTSIDE RECORDS SUMMARY | 2025-05-09 10:27 | XMS_ITS | Encounter Summary ---
Author Organization [facility] Address [address] [place] [address] Care Team Providers Care Brand Planner Name Role Phone Melchor Rodríguez MD Primary Care Provider [phone] Reason for Visit * Reason Onset Date Comments refill request 03/27/2022 Encounter Details Date Type Department Care Team Description 03/27/2022 Refill Adult Medicine [facility] [address] [place] [address] Tiff Bhakta MD [address] [place] [address] refill request Social History Tobacco Use Types [...] N/A Patients current insurance carrier is: Payor: [facility] FFS / Plan: [facility] / Product Type: MEDICAID RISK documented in this encounter Plan of Treatment Not on file documented as of this encounter Visit Diagnoses Not on filedocumented in this encounter Care Teams Brand Planner Relationship Specialty Start Date End Date Melchor Rodríguez MD [address] [place] [address] PCP - General Internal Medicine 03/27/22 documented as of this encounter
--- OUTSIDE RECORDS SUMMARY | 2025-05-09 10:27 | XMS_ITS | Encounter Summary ---
Author Organization [facility] Address [address] [place] [address] Care Team Providers Care Regulatory Attorney Name Role Phone Melchor Rodríguez MD Primary Care Provider [phone] Reason for Visit * Reason Comments E-prescribe Rx Request Encounter Details Date Type Department Care Team Description 09/12/2022 Refill Adult Medicine [address] [address] Jenni Brady PA [address] [place] [address] E-prescribe Rx Request Social History Tobacco Use [...] Miscellaneous Notes * Telephone Encounter - Brynn Medina M.A. - 09/18/2022 9:32 AM EST Sarah, [...] on filedocumented in this encounter Care Teams Regulatory Attorney Relationship Specialty Start Date End Date Melchor Rodríguez MD [address] [place] [address] PCP - General Internal Medicine 03/27/22 documented as of this encounter
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
--- OUTSIDE RECORDS SUMMARY | 2025-05-09 10:27 | XMS_ITS | Encounter Summary ---
Author Organization [facility] Address [address] [place] [address] Care Team Providers Care Wine Pasteurizer Name Role Phone Melchor Rodríguez MD Primary Care Provider [phone] Reason for Visit * Reason Comments E-prescribe Rx Request Encounter Details Date Type Department Care Team Description 07/19/2022 Refill Adult Medicine [address] [address] Sarah Meier PA-C [address] [place] [address] E-prescribe Rx Request Social History Tobacco Use [...] N/A Patients current insurance carrier is: Payor: [facility] FFS / Plan: [facility] / Product Type: MEDICAID RISK documented in this encounter Plan of Treatment Not on file documented as of this encounter Visit Diagnoses Not on filedocumented in this encounter Care Teams Wine Pasteurizer Relationship Specialty Start Date End Date Melchor Rodríguez MD [address] [place] [address] PCP - General Internal Medicine 03/27/22 documented as of this encounter
--- OUTSIDE RECORDS SUMMARY | 2025-05-09 10:27 | XMS_ITS | Clinical Summary ---
Author Organization [place] [address] Karina [facility] Address [address] [place], [place] [address], [place] [address] Phone Care Team Providers Care Cable Engineer Name Role Phone Melchor Rodríguez MD Primary Care Provider [phone] Allergies Active Allergy Reactions Criticality Noted Date Comments Erythromycin Rash 01/26/2019 [place] 03/29/2019 Sumatriptan 01/26/2019 welts Tizanidine Hallucinations 01/26/2019 Medications magnesium glycinate 100 mg magnesium capsule Take 4 Capsules by mouth daily. Active erenumab-aooe (Aimovig Autoinjector) 140 mg/mL injection Active gabapentin (NEURONTIN) 300 mg capsule TAKE 2 CAPSULES BY MOUTH DAILY AT BEDTIME Active hydrocortisone 1 % topical cream Apply to affected area twice daily until resolution. Active riboflavin (VITAMIN B2) 25 mg tablet Take 16 Tablets by mouth daily. Active aspirin 81 mg chewable tablet Chew 1 tablet (81 mg total) 1 (one) time each day. 05/15/20 24 Active amLODIPine (NORVASC) 2.5 mg tablet Take 1 tablet (2.5 mg total) by mouth 1 (one) time each day. 10/04/19 25 Active sertraline (ZOLOFT) 100 mg tablet Take 1 tablet (100 mg total) by mouth 1 (one) time each day. at bedtime 90 each 1 03/09/20 25 026 Active prazosin (MINIPRESS) 2 mg capsule Take 1 capsule (2 mg total) by mouth at bedtime. 90 each 1 03/09/20 25 026 Active ascorbic acid (VITAMIN C) 250 mg tablet Take 1 tablet (250 mg total) by mouth 1 (one) time each day. 90 tablet 1 03/09/20 25 Active pantoprazole (PROTONIX) 40 mg EC tablet Take 1 tablet (40 mg total) by mouth 1 (one) time each day. 90 tablet 1 03/09/20 25 Active cetirizine (ZyrTEC) 10 mg tablet Take 1 tablet (10 mg total) by mouth 1 (one) time each day. 90 each 1 03/09/20 25 026 Active calcium citrate-vitamin D3 (CALTRATE MAXIMUM) 315 mg-6.25 mcg (250 unit) per tablet Take 1 tablet by mouth 1 (one) time each day. 90 tablet 1 03/09/20 25 Active tirzepatide, weight loss, (Zepbound) 5 mg/0.5 mL injectionIndica tions:Obesity (BMI 30.0-34.9),Hype rtension, unspecified type Inject 0.5 mL (5 mg total) under the skin every 7 (seven) days. 2 mL 05/05/20 25 Active tirzepatide, weight loss, (Zepbound) 2.5 mg/0.5 mL injectionIndica tions:Obesity (BMI 30.0-34.9),Hype rtension, unspecified type Inject 0.5 mL (2.5 mg total) under the skin every 7 (seven) days. 2 mL 04/13/20 25 025 Discontinued Active Problems Problem Noted Date Diagnosed Date Closed fracture of left proximal humerus 025 Overview (03/09/2025): SP ORIF 10/06/24 Migraine with aura 10/14/2024 GERD (gastroesophageal reflux [...] kidney disease) stage 3, GFR 30-59 ml/min ([facility] V24, [facility] V28) 03/29/2019 Carpal tunnel syndrome 03/29/2019 Overview (10/14/2024): 2012 R CTR Borderline personality disorder ([facility] V24, CM S/[facility] V28) 02/24/2019 Anxiety 02/17/2019 Encounters Date Type Department Care Team Description 04/11/2025 10:30 AM EDT Consult Bariatric Surgery - [place] [address] [facility] [address] [facility] [address] [place] [phone] Chelsea Hardy PA Obesity (BMI 30.0-34.9) (Primary Dx); Hypertension, unspecified type 03/29/2025 Telephone Internal Medicine - [place] [address] [place], [place] [phone] Melchor Rodríguez MD 03/27/2025 Telephone Internal Medicine - [place] [address] [place], [place] [phone] Melchor Rodríguez MD 03/23/2025 11:00 AM EDT Consult Plastic & Reconstructive Surgery [facility] [address] [place] [phone] Peña Farias DO Chronic neck and back pain (Primary Dx); Macromastia; Intertrigo; BMI 35.0-35.9,adult; Status post bilateral breast reduction 03/23/2025 Telephone Plastic & Reconstructive Surgery [facility] [address] [place] [address] Peña Farias DO 03/09/2025 8:45 AM EDT Office Visit Internal Medicine - [facility] [address] [place] [address] Mann Marin PA Grief (Primary Dx); Macromastia; Primary hypertension; Encounter for screening mammogram for malignant neoplasm of breast; Other closed displaced fracture of proximal end of left humerus with routine healing, subsequent encounter; PTSD (post-traumatic stress disorder); Major depressive disorder, remission status unspecified, unspecified whether recurrent from Last 3 Months Immunizations Name Administration Dates Next Due Influenza [...] Date Site/Laterality Comments BREAST REDUCTION 1987 PROCEDURE: OH BREAST REDUCTION; COMMENT: Arianna OTHER SURGICAL HISTORY 2001 PROCEDURE: OH ARTHRODESIS ANTERIOR SPINAL DFRM 4-7 VRT SGM; COMMENT: Arianna, L4-5, S1 SECTION 09/14/2004 PROCEDURE: OH DELIVERY ONLY TUBAL LIGATION 09/14/2004 PROCEDURE: HISTORICAL TUBAL LIGATION ANKLE FRACTURE SURGERY 03/31/2011 Left PROCEDURE: OH OPEN TREATMENT MEDIAL MALLEOLUS FRACTURE; [facility] [place] hardware in place KNEE ARTHROSCOPY W/ DEBRIDEMENT Left PROCEDURE: OH ARTHRS KNEE DEBRIDEMENT/SHAVING ARTCLR CRTLG; COMMENT: in childhood HAND SURGERY 07/2018 Right PROCEDURE: OH UNLISTED PROCEDURE HANDS/FINGERS; COMMENT: thumb wash out for cellulitis/cat bite UPPER GASTROINTESTINAL ENDOSCOPY 02/11/2018 PROCEDURE: UPPER GI ENDOSCOPY/EXAM; COMMENT: reflux esophagitis CARPAL TUNNEL RELEASE 05/2012 Right PROCEDURE: HISTORICAL CARPAL TUNNEL REL; COMMENT: [place], [facility] BACK SURGERY 2002 PROCEDURE: HISTORICAL BACK SURGERY; COMMENT: L4-L5, L5-S1 fusion 2 rods, cage, & 6 screws KNEE ARTHROSCOPY 08/2019 Left PROCEDURE: OH ARTHROSCOPY AID TX SPINE&/FX KNEE W/O FIXJ [...] 2015 which had a big impact, then Anxiety 02/17/2019 DX:Anxiety Borderline personality disor mynor ([facility] V24, [facility] V28) 02/24/2019 DX:Borderline personality d isorder ([facility]) Migraine with aura DX:Migraine w ith aura CKD (chronic kidney disease) stage 3, GFR 30-59 ml/min ([facility] V24, [facility] V28) 03/29/2019 DX:CKD (chronic kidney disea se) stage 3, GFR 30-59 ml/min ([facility]) Carpal tunnel syndrome 03/29/2019 DX:Carpal tunnel syndrome; COMMENT: 2011 R CTR Hypertension 05/26/2019 DX:Hypertension Family History Medical History Relation Name Comments No Known Problems Brother 1 (half brot her) Drug abuse Brother 2 (half brother) depression, hepatitis Migraines Daughter Sales Heart attack Father Osteoarthritis Stomach cancer Maternal Grandmother [place],CV A, of Bladder Cancer Lung cancer Mother COPD,[place] (30's),CVA,AAA,HTN,migraines,depressio n (Bipolar),anemia, arthritis, colitis Breast cancer [...] Brother 1 Alive Brother 2 Alive Daughter Sales Alive Father Alive Maternal Grandmother Mother Alive [...] Sign Reading Time Taken Comments Blood Pressure 143/82 04/11/2025 10:29 AM EDT Pulse 66 04/11/2025 10:29 AM EDT Temperature - - Respiratory Rate 16 03/09/2025 8:36 AM EDT Oxygen Saturation - - Inhaled Oxygen Concentration - - Weight 103 kg (228 lb) 04/11/2025 10:29 AM EDT Height 172.7 cm (5' 8 ) 04/11/2025 10:29 AM EDT Body Mass Index 34.67 04/11/2025 10:29 AM EDT Plan of Treatment Upcoming Encounters Date Type Department Care Team (Late st Contact Info) Description 09/05/2025 11:00 AM EST Office Visit Bariatric Surgery - [address] [place] [phone] Chelsea Hardy PA [address] [place] [address] 09/12/2025 4:00 PM EST Office Visit Internal Medicine - [address] [address] Melchor Rodríguez MD [address] [place] [phone] Health Maintenance Due Date Last Done Comments Hepatitis B Vaccines (1 of 3 - 19+ 3-dose series) 11/16/1987 Pneumococcal Vaccine: 50+ Years (1 of 1 - PCV) 2018 COVID-19 Vaccine (3 - Pfizer risk series) 02/15/2021 01/18/2021, 12/28/2020 Breast Cancer Screening 04/05/2022 04/05/2020, 02/09 Cervical Cancer Screening: Pap Smear 04/25/2022 04/25/2019, 04/25/2019, 04/25/2019 Social Influencers of Health Screening 08/09/2022 Depression Screening 08/31/2024 Colorectal Cancer Screening: Colonoscopy 04/11/2025 04/11/2020 Influenza Vaccine (#1) 2025 , 06/15/2020, 07/12/2019, Additional history exists Hypertension/CHF/CAD Annual BMP Blood Test 03/09/2026 03/09/2025, 06/24/2024, 06/24/2024, Additional history exists Cholesterol Screening (Lipid Panel) 03/09/2030 03/09/2025, 11/19/2022 DTaP,Tdap,and Td Vaccines (3 - Td [...] age to complete this topic Meningococcal B Vaccine Aged Out No l onger eligible based on patient's age to complete this topic RSV Immunization Patients Under 20 months Aged Out No longer eligible based on patient's age to complete this topic Varicella Vaccines Aged Out No longer eligible based on patient's age to complete this topic Procedures Procedure Name Priority Date/Time Associated Diagnosis Comments COMPREHENSIVE METABOLIC PANEL Routine 03/09/2025 9:30 AM EDT Primary hypertension LIPID PANEL WITH REFLEX TO DIRECT LDL Routine 03/09/2025 9:30 AM EDT Primary hypertension COLONOSCOPY Routine 04/11/2020 TETE SCREENING DIGITAL Routine 04/05/2020 10:31 AM EDT Encounter for screening mammogram for malignant neoplasm of breast PAP SMEAR Routine 04/25/2019 HEPATITIS C SCREENING Routine 04/11/2019 HIV SCREENING Routine 04/11/2019 from Last 3 Months or Most Recently Relevant to Health Maintenance Results * (ABNORMAL) Lipid panel with reflex to direct LDL (03/09/2025 9:30 AM EDT) Cholesterol 185 0 - 200 mg/dL LAB CHEMISTRY METHOD 03/09/2025 12:49 PM [facility] Triglycerides 108 0 - 150 mg/dL LAB CHEMISTRY METHOD 03/09/2025 12:49 PM [facility] HDL 55 >=40 mg/dL LAB CHEMISTRY METHOD 03/09/2025 12:49 PM [facility] LDL Calculated 108(H) 0 - 100 mg/dL LAB CHEMISTRY METHOD 03/09/2025 12:49 PM [facility] VLDL Cholesterol Robe 21.6 mg/dL LAB CHEMISTRY METHOD 03/09/2025 12:49 PM [facility] Non HDL Chol. (LDL+VLDL) 130 <145 mg/dL LAB CHEMISTRY METHOD 03/09/2025 12:49 PM EDT [facility] Chol/HDL Ratio 3.4 0.0 - 4.4 LAB CHEMISTRY METHOD 03/09/2025 12:49 PM [facility] Blood Venous blood specimen / Unknown Venipuncture / Unknown 03/09/2025 9:30 AM EDT 03/09/2025 9:30 AM EDT us Mann JANE LAB BLOOD ORDERABLES Fi nal Result [facility] [address] [place] [address], [place] [phone] * (ABNORMAL) Comprehensive metabolic panel (03/09/2025 9:30 AM EDT) Sodium 142 133 - 145 mmol/L LAB CHEMISTRY METHOD 03/09/2025 12:49 PM [facility] Potassium 3.8 3.5 - 5.5 mmol/L LAB CHEMISTRY METHOD 03/09/2025 12:49 PM [facility] Chloride 108 96 - 110 mmol/L LAB CHEMISTRY METHOD 03/09/2025 12:49 PM [facility] CO2 26 21 - 32 mmol/L LAB CHEMISTRY METHOD 03/09/2025 12:49 PM [facility] Anion Gap 8 3 - 11 LAB CHEMISTRY METHOD 03/09/2025 12:49 PM [facility] Glucose 100 70 - 100 mg/dL LAB CHEMISTRY METHOD 03/09/2025 12:49 PM [facility] BUN 11 5 - 25 mg/dL LAB CHEMISTRY METHOD 03/09/2025 12:49 PM [facility] Creatinine 1.12(H) 0.50 - 1.10 mg/dL LAB CHEMISTRY METHOD 03/09/2025 12:49 PM [facility] eGFR 58(L) >=60 mL/min/1. 73m2 LAB CHEMISTRY METHOD 03/09/2025 12:49 PM [facility] Comment:Calculation based on the Chronic Kidney Disease Epidemiology Collaboration (CKD-EPI) equation refit without adjustment for race. BUN/Creatinine Ratio 9.8 LAB CHEMISTRY METHOD 03/09/2025 12:49 PM EDT [facility] Calcium 9.5 8.5 - 10.5 mg/dL LAB CHEMISTRY METHOD 03/09/2025 12:49 PM [facility] AST (SGOT) 14 10 - 42 unit/L LAB CHEMISTRY METHOD 03/09/2025 12:49 PM [facility] ALT (SGPT) 22 10 - 60 unit/L LAB CHEMISTRY METHOD 03/09/2025 12:49 PM [facility] Alkaline Phosphatase 91 42 - 121 unit/L LAB CHEMISTRY METHOD 03/09/2025 12:49 PM [facility] Total Protein 7.3 6.0 - 8.0 g/dL LAB CHEMISTRY METHOD 03/09/2025 12:49 PM [facility] Albumin 4.3 3.2 - 5.0 g/dL LAB CHEMISTRY METHOD 03/09/2025 12:49 PM [facility] Total Bilirubin 1.3 0.0 - 1.4 mg/dL LAB CHEMISTRY METHOD 03/09/2025 12:49 PM [facility] Blood Venous blood specimen / Unknown Venipuncture / Unknown 03/09/2025 9:30 AM EDT 03/09/2025 9:30 AM EDT Mann JANE LAB BLOOD ORDERABLES Fi nal Result [facility] [address] [place] [address], * Colonoscopy (04/11/2020) Colonoscopy no interpretation abstracted Anatomical Region Laterality Modality Other us Historical Provider HEALTH MAINTENANCE Final Result * TETE SCREENING DIGITAL (04/05/2020 10:31 AM EDT) Anatomical Region Laterality Modality Mammography 04/02/2020 8:25 AM EDT Narrative 04/05/2020 10:31 AM EDT [facility] Diagnostic Imaging Department [address] [place] [address] Patient: SUSHMA LIRA Willa /Age/Sex: 1970 - 49 - F Unit#: [id number] Location/Status: SPDIMAM/REG CLI Mnemonic/Ordering Site: [facility] Ordering Physician: JIMMIE ABBASI MD Tete Screening Digital - 04/02/20914 EXAM: [facility] Screening Digital EXAM DATE AND TIME: 04/02/2020 9:21 AM HISTORY: Screening. Reduction mammoplasty in 1986. Maternal aunt had breast carcinoma. COMPARISON: 02/09/19 ([facility], [place], [place]) TECHNIQUE: CC and MLO views of both breasts were obtained using full field digital mammography. Bilateral digital breast tomosynthesis was performed in the MLO projection. Computer aided detection with the Animated Speech 7.2-H was employed. TISSUE DENSITY: a. The breasts are almost entirely fatty. FINDINGS: Reduction mammoplasty sequelae are again seen. No suspicious masses, grouped microcalcifications, or areas of architectural distortion are seen. The skin and vascularity are unremarkable. IMPRESSION: Stable mammographic appearance of the breasts. No evidence of malignancy is seen. A negative mammogram in the presence of a clinically suspicious palpable abnormality does not preclude the possibility of malignancy or alter the indications for biopsy. BI-RADS: Category 2: Benign RECOMMENDATION(S): 1: Routine screening mammogram BILATERAL in 1 year. 78064, 74859 0352F, 7032F Dictating Physician: NOELLE DENSON MD Electronically Signed by: NOELLE DENSON MD Dic Date/Time: 04/05/20 1030 Sign date/Time: 04/05/20 1031 Procedure Note Noelle Denson MD - 08/20/2022 [facility] Diagnostic Imaging Department [address] [place] [address] Patient: SUSHMA LIRA Willa Jauregui/Age/Sex: 1970 - 49 - F Unit#: [id number] Location/Status: SPDIMA/REG CLI Mnemonic/Ordering Site: [facility] Ordering Physician: JIMMIE ABBASI MD [facility] Screening Digital - 04/02/20 - 914 EXAM: [facility] Screening Digital EXAM DATE AND TIME: 04/02/2020 9:21 AM HISTORY: Screening. Reduction mammoplasty in 1986. Maternal aunt hadbreast carcinoma. COMPARISON: 02/09/19 ([facility],[place], [place]) TECHNIQUE: CC and MLO views of both breasts were obtained using fullfield digital mammography. Bilateral digital breast tomosynthesis was performedin the MLO projection. Computer aided detection with the Animated Speech 7.2-Hwas employed. TISSUE DENSITY: a. The breasts are [...] Routine screening mammogram BILATERAL in 1 year. 82675, 99943 3342F, 7025F Dictating Physician: NOELLE DENSON MD Electronically Signed by: NOELLE DENSON MD Dic Date/Time: 04/05/20 1030 Sign date/Time: 04/05/20 1031 Jimmie Abbasi MD IMG BI PROCEDURES Final Result * Pap smear (04/25/2019) 04/25/2019 Narrative HISTORICAL TESTING LAB RESULTING AGENCY - 05/03/2019 2:20 PM EDT [id number] THINPREP PAP, IMAGED: ATYPICAL SQUAMOUS CELLS OF UNDETERMINED SIGNIFICANCE (ASCUS) . ABUNDANT RED BLOOD CELLS ARE PRESENT. FRANCINE RUGGIERO , ALFONSO(ASCP) (CASE SCREENED 04 27 2019) NEENA NAILS M.D. , PATHOLOGIST (CASE ELECTRONICALLY SIGNED 04 29 2019) RESULT OF APTIMA HIGH RISK HPV ASSAY: HIGH RISK HPV: POSITIVE (SEROTYPES 16,18,31,33,35,39,45,51,52,56,58,59,66,68) COMPLETED ON 2019-04-26 ADEQUACY: SATISFACTORY ENDOCERVICAL/TRANSFORMATION ZONE COMPONENT PRESENT. SOURCE: THINPREP PAP HPV ANY DX: REFLEX 16 AND 18, CERVICAL, IMAGED CLINICAL INFORMATION: HPV ANY DIAGNOSIS. PAP HX NEG [Z12.4, Z01.419] Zaira Ramos DO LAB CYTOLOGY ORDERABLES Final Result HISTORICAL TESTING LAB RESULTING AGENCY * HIV Screening (04/11/2019) HIV Screening abstracted Historical Provider HEALTH MAINTENANCE Final Result * Hepatitis C Screening (04/11/2019) Hepatitis C Screening abstracted Historical Provider HEALTH MAINTENANCE Final Result from Last 3 Months or Most Recently Relevant to Health Maintenance Insurance [facility] PL[facility] Care Teams Cable Engineer Relationship Specialty Start Date End Date Melchor Rodríguez MD [address] [facility] [place] [address] PCP - General Internal Medicine 12/16/24
--- OUTSIDE RECORDS SUMMARY | 2025-05-09 10:27 | XMS_ITS ---
Author Name [facility] Organization Unknown Care Team Organization Name Specialty Phone Email Start Date End Da te [facility] Melchor Rodríguez Primary Care 07/08/20222023
--- OUTSIDE RECORDS SUMMARY | 2025-05-09 10:27 | XMS_ITS | Clinical Summary ---
Author Organization [facility] Address [address] [place] [address] Care Team Providers Care Cone Trucker Name Role Phone Zuleima Mcclain MD Primary Care Provider + Allergies Active Allergy Reactions Criticality Noted Date Comments Erythromycin Rash Medium 03/18/2018 Other reaction(s): Rash/Dermatitis, Unknown/Patient and Family Unable to Define [place] Hives 04/28/2018 Sumatriptan Anaphylaxis High 03/18/2018 welts [...] 66 04/28/2018 10:03 PM EDT Temperature 36.6 C (97.9 F) 04/28/2018 10:03 PM EDT Respiratory Rate 18 04/28/2018 10:03 PM EDT [...] (1 of 2) 2018 Influenza Vaccine (#1) 2025 Pneumococcal Vaccine Aged Out No long er eligible based on patient's age to complete this topic RSV Ped < 20 months Aged Out No longe r eligible based on patient's age to complete this topic Care Teams Cone Trucker Relationship Specialty Start Date End Date Zuleima Mcclain MD [address] [facility] [address] [facility] [place] [phone] PCP - General Internal Medicine 04/29/19
--- OUTSIDE RECORDS SUMMARY | 2025-05-09 10:27 | XMS_ITS | Encounter Summary ---
[facility] Address [address] [place] [address] Care Team Providers Care Market Superintendent Name Role Phone Melchor Rodríguez MD Primary Care Provider [phone] Reason for Visit * Reason Comments E-prescribe Rx Request Encounter Details Date Type Department Care Team Description 08/14/2022 Refill Adult Medicine [facility] [address] [place] [address] Sarah Meier PA-C [address] [place] [address] E-prescribe Rx Request Social History Tobacco Use [...] N/A Patients current insurance carrier is: Payor: [facility] FFS / Plan: [facility] / Product Type: MEDICAID RISK documented in this encounter Plan of Treatment Not on file documented as of this encounter Visit Diagnoses Not on filedocumented in this encounter Care Teams Market Superintendent Relationship Specialty Start Date End Date Melchor Rodríguez MD [address] [place] [address] PCP - General Internal Medicine 03/27/22 documented as of this encounter
--- OUTSIDE RECORDS SUMMARY | 2025-05-09 10:27 | XMS_ITS | Encounter Summary ---
Author Organization [facility] Address [address] [place] [address] Care Team Providers Care Sr. Social Media & Mobile Manager Name Role Phone Melchor Rodríguez MD Primary Care Provider [phone] Encounter Details Date Type Department Care Team Description 01/28/2023 Hospital Medical Records [address] [place] [address] Olga Misty Karena Social History Tobacco Use Types Packs/Day Years [...] on filedocumented in this encounter Care Teams Sr. Social Media & Mobile Manager Relationship Specialty Start Date End Date Melchor Rodríguez MD [address] [place] [address] PCP - General Internal Medicine 03/27/22 documented as of this encounter
--- OUTSIDE RECORDS SUMMARY | 2025-05-09 10:27 | XMS_ITS | Encounter Summary ---
Author Organization [facility] Address [address] [place] [address] Care Team Providers Care See Wheeler Name Role Phone Jose Abbasi MD Primary Care Provider Unavailable Tiff Bhakta MD Primary Care Provider [phone] Melchor Rodríguez MD Primary Care Provider [phone] Encounter Details Date Type Department Care Team Description 09/17/2020 Color Finisher Report Medical Records [address] [place] [address] Vna Social History Tobacco Use Types Packs/Day Years [...] on filedocumented in this encounter Care Teams See Wheeler Relationship Specialty Start Date End Date Jose Abbasi MD PCP - General Internal Medicine 01/18/19 Tiff Bhakta MD [address] [place] [address] PCP - General Internal Medicine 08/27/21 03/26/22 Melchor Rodríguez MD [address] [place] [address] PCP - General Internal Medicine 03/27/22 documented as of this encounter
--- OUTSIDE RECORDS SUMMARY | 2025-05-09 10:27 | XMS_ITS | Encounter Summary ---
Author Organization [facility] Address [address] [place] [address] Care Team Providers Care Clinical Supervisor Name Role Phone Melchor Rodríguez MD Primary Care Provider [phone] Reason for Visit * Reason Comments E-prescribe Rx Request Encounter Details Date Type Department Care Team Description 10/14/2022 Refill Adult Medicine [address] [address] Sraah Meier PA-C [address] [place] [address] E-prescribe Rx Request Social History Tobacco Use [...] encounter Miscellaneous Notes * Telephone Encounter - Cooper Kuhn M.A. - 10/18/2022 8:10 PM EST Last ov 04/17/2022 next ov 11/19/22 with new pcp # 32 tabs pending upcoming appt with new pcp Lab Results Component Value Date NA 142 10/16/2021 K 3.9 10/16/2021 CO2 28 10/16/2021 CL 108 10/16/2021 BUN 9 10/16/2021 CREAT 0.93 10/16/2021 GLU 91 10/16/2021 CA 9.0 10/16/2021 GFR > 60 10/16/2021 * Telephone Encounter - Michelle Soares - 10/18/2022 1:07 PM EST Patient would like script to be: E-PRESCRIBED/FAXED TO PHARMACY WHEN WAS THE PATIENT'S LAST APPOINTMENT IN ADULT MEDICINE? 04/17/2022 WHEN WAS THE LAST TIME THE PATIENT SAW THEIR PCP? Does patient have an upcoming appointment? Yes 11/19/2022 (THE MEDICATION REQUESTED IS ON THE MED LIST ABOVE) All of the medications requested were on the CURRENT MEDS list Did you check the Pharmacy information above?: YES Patient wants: 30 -day supply Is this a mail order prescription request ? NO If the refill is from a FAXED refill request what is the RX # listed on the fax? N/A Patients current insurance carrier is: Payor: [facility]FS / Plan: [facility] / Product Type: MEDICAID RISK documented in this encounter Plan of Treatment Not on file documented as of this encounter Visit Diagnoses Not on filedocumented in this encounter Care Teams Clinical Supervisor Relationship Specialty Start Date End Date Melchor Rodríguez MD [address] [place] [address] PCP - General Internal Medicine 03/27/22 documented as of this encounter
--- OUTSIDE RECORDS SUMMARY | 2025-05-09 10:27 | XMS_ITS | Encounter Summary ---
Author Organization [facility] Address [address] [place] [address] Care Team Providers Care Machine Stone Polisher Apprentice Name Role Phone Jose Abbasi MD Primary Care Provider Unavailable Tiff Bhakta MD Primary Care Provider [phone] Melchor Rodríguez MD Primary Care Provider [phone] Encounter Details Date Type Department Care Team Description 09/22/2019 Orders Only Medical Records [address] [place] [address] Andrews Mann MD [address] [place] [address] Social History Tobacco Use Types Packs/Day Years [...] Name Priority Date/Time Associated Diagnosis Comments OUTSIDE VASCULAR STUDY Routine 09/19/2019 documented in this encounter Results * OUTSIDE VASCULAR STUDY (09/19/2019) Andrews Mann MD CARDIOLOGY documented in this encounter Visit Diagnoses Not on filedocumented in this encounter Care Teams Machine Stone Polisher Apprentice Relationship Specialty Start Date End Date Jose Abbasi MD PCP - General Internal Medicine 01/18/19 Tiff Bhakta MD [address] [place] [address] PCP - General Internal Medicine 08/27/21 03/26/22 Melchor Rodríguez MD [address] [place] [address] PCP - General Internal Medicine 03/27/22 documented as of this encounter
--- OUTSIDE RECORDS SUMMARY | 2025-05-09 10:27 | XMS_ITS | Encounter Summary ---
Author Organization [facility] Address [address] [place] [address] Care Team Providers Care Biomedical Analytical Scientist Name Role Phone Jose Abbasi MD Primary Care Provider Unavailable Tiff Bhakta MD Primary Care Provider [phone] Melchor Rodríguez MD Primary Care Provider [phone] Encounter Details Date Type Department Care Team Description 12/14/2015 [facility] Medical Records [address] [place] [address] Abstract, Provider Social History Tobacco Use Types [...] on filedocumented in this encounter Care Teams Biomedical Analytical Scientist Relationship Specialty Start Date End Date Jose Abbasi MD PCP - General Internal Medicine 01/18/19 Tiff Bhakta MD [address] [place] [address] PCP - General Internal Medicine 08/27/21 03/26/22 Melchor Rodríguez MD [address] [place] [address] PCP - General Internal Medicine 03/27/22 documented as of this encounter
--- OUTSIDE RECORDS SUMMARY | 2025-05-09 10:27 | XMS_ITS | Encounter Summary ---
Author Organization [facility] Address [address] [place] [address] Care Team Providers Care Supervisor Natural Gas Plant Name Role Phone Jose Abbasi MD Primary Care Provider Unavailable Tiff Bhakta MD Primary Care Provider [phone] Melchor Rodríguez MD Primary Care Provider [phone] Encounter Details Date Type Department Care Team Description 04/24/2020 Orders Only Medical Records [address] [place] [address] Arthur Corbett MD [address] [place] [address] Social History Tobacco Use Types Packs/Day Years [...] Certified Gastroenterology and Internal Medicine Transplant Hepatology [facility] documented in this encounter Plan of Treatment Not on file documented as of this encounter Procedures Procedure Name Priority Date/Time Associated Diagnosis Comments OUTSIDE PATHOLOGY Routine 04/11/2020 documented in this encounter Results * OUTSIDE PATHOLOGY (04/11/2020) H Jaime Corbett MD OUTSIDE LAB documented in this encounter Visit Diagnoses Not on filedocumented in this encounter Care Teams Supervisor Natural [employer] Plant Relationship Specialty Start Date End Date Jose Abbasi MD PCP - General Internal Medicine 01/18/19 Tiff Bhakta MD [address] [place] [address] PCP - General Internal Medicine 08/27/21 03/26/22 Melchor Rodríguez MD [address] [place] [address] PCP - General Internal Medicine 03/27/22 documented as of this encounter
--- OUTSIDE RECORDS SUMMARY | 2025-05-09 10:27 | XMS_ITS | Encounter Summary ---
Author Organization [facility] Address [address] [place] [address] Care Team Providers Care Solidworks Drafter Name Role Phone Jose Abbasi MD Primary Care Provider Unavailable Tiff Bhakta MD Primary Care Provider [phone] Melchor Rodríguez MD Primary Care Provider [phone] Encounter Details Date Type Department Care Team Description 04/18/2020 Orders Only Medical Records [address] [place] [address] Abstract, Provider Social History Tobacco Use Types [...] on filedocumented in this encounter Care Teams Solidworks Drafter Relationship Specialty Start Date End Date Jose Abbasi MD PCP - General Internal Medicine 01/18/19 Tiff Bhakta MD [address] [place] [address] PCP - General Internal Medicine 08/27/21 03/26/22 Melchor Rodríguez MD [address] [place] [address] PCP - General Internal Medicine 03/27/22 documented as of this encounter
--- OUTSIDE RECORDS SUMMARY | 2025-05-09 10:27 | XMS_ITS | Encounter Summary ---
Author Organization [facility] Address [address] [place] [address] Care Team Providers Care Central Station Operator Name Role Phone Jose Abbasi MD Primary Care Provider Unavailable Tiff Bhakta MD Primary Care Provider [phone] Melchor Rodríguez MD Primary Care Provider [phone] Encounter Details Date Type Department Care Team Description 05/30/2020 Orders Only Medicine/Pediatrics - [address] [address] Jose Abbasi MD Preoperative examination; Screening for [...] NEGATIVE NEGATIVE 06/12/2020 12:44 PM EDT [facility] PH, URINE 5.5 5.0 - 8.0 06/12/2020 12:44 PM EDT [facility] PROTEIN, URINE NEGATIVE <= TRACE mg/dl 06/12/2020 12:44 PM EDT [facility] UROBILINOGEN, URINE 0.2 0.2 - 1.0 E.U./dL 06/12/2020 12:44 PM EDT [facility] NITRITE,URINE NEGATIVE NEGATIVE 06/12/2020 12:44 PM EDT [facility] LEUKOCYTE ESTERASE, URINE LARGE(A) NEGATIVE 06/12/2020 12:44 PM EDT [facility] RBC-Urine 4 0 - 4 /HPF 06/12/2020 12:46 PM EDT [facility] WBC-Urine 33(H) 0 - 4 /HPF 06/12/2020 12:46 PM EDT [facility] EPITH CELLS, URINE 66(H) 0 - 60 /LPF 06/12/2020 12:46 PM EDT [facility] BACTERIA, URINE NEGATIVE NEGATIVE 06/12/2020 12:46 PM EDT [facility] HYALINE CAST, URINE 7(H) 0 - 3 /LPF 06/12/2020 12:46 PM EDT [facility] 06/12/2020 9:48 AM EDT 06/12/2020 9:53 AM EDT Jose Abbasi MD LAB [facility] * (ABNORMAL) BASIC METABOLIC PANEL (06/12/2020 9:48 AM EDT) [facility] GLUCOSE 154(H) 70 - 100 mg/dL 06/12/2020 12:57 PM EDT [facility] Comment:Reference range appl icable to fasting specimens only Blood Urea Nitrogen 9 5 - 25 mg/dL 06/12/2020 12:57 PM EDT [facility] CREAT 1.20(H) 0.5 - 1.1 mg/dL 06/12/2020 12:57 PM EDT [facility] GLOMERULAR FILTRATION RATE 47 06/12/2020 12:57 PM EDT [facility] Comment: If patient is -Boliv[place], multiply result by 1.21 Chronic Kidney Disease: [...] AM EDT Jose Abbasi MD LAB [facility] documented in this encounter Visit Diagnoses Diagnosis Preoperative examination Preoperative examination, unspecified Screening for deficiency anemia Screening for other and unspecified deficiency anemia documented in this encounter Care Teams Central Station Operator Relationship Specialty Start Date End Date Jose Abbasi MD PCP - General Internal Medicine 01/18/19 Tiff Bhakta MD [address] [place] [address] PCP - General Internal Medicine 08/27/21 03/26/22 Melchor Rodríguez MD [address] [place] [address] PCP - General Internal Medicine 03/27/22 documented as of this encounter
--- OUTSIDE RECORDS SUMMARY | 2025-05-09 10:27 | XMS_ITS | Encounter Summary ---
Author Organization [facility] Address [address] [place] [address] Care Team Providers Care Er Nurse Name Role Phone Melchor Rodríguez MD Primary Care Provider [phone] Reason for Visit * Reason Onset Date Comments Faxed Order 03/25/2023 [facility] alth #[id number] Encounter Details Date Type Department Care Team Description 03/25/2023 Telephone Adult Medicine [address] [address] Melchor Rodríguez MD [address] [place] [address] Faxed Order ([facility] #[id number]) Social History Tobacco Use Types Packs/Day Years [...] encounter Miscellaneous Notes * Telephone Encounter - Karthik Pennington - 03/25/2023 1:27 PM EDT Faxed orders received from [facility]. Pls sign and fax back to [phone]. Thx. documented in this encounter Plan of Treatment Not on file documented as of this encounter Visit Diagnoses Not on filedocumented in this encounter Care Teams Er Nurse Relationship Specialty Start Date End Date Melchor Rodríguez MD [address] [place] [address] PCP - General Internal Medicine 03/27/22 documented as of this encounter
--- OUTSIDE RECORDS SUMMARY | 2025-05-09 10:27 | XMS_ITS | Encounter Summary ---
Author Organization [facility] Address [address] [place] [address] Care Team Providers Care Hand Launderer Name Role Phone Melchor Rodríguez MD Primary Care Provider [phone] Reason for Visit * Reason Comments E-prescribe Rx Request Encounter Details Date Type Department Care Team Description 10/15/2022 Refill Adult Medicine [facility] [address] [place] [address] Sarah Meier PA-C [address] [place] [address] E-prescribe Rx Request Social History Tobacco Use [...] is: Payor: [facility] / Plan: [facility] / Product Type: MEDICAID RISK documented in this encounter Plan of Treatment Not on file documented as of this encounter Visit Diagnoses Not on filedocumented in this encounter Care Teams Hand Launderer Relationship Specialty Start Date End Date Melchor Rodríguez MD [address] [place] [address] PCP - General Internal Medicine 03/27/22 documented as of this encounter
--- OUTSIDE RECORDS SUMMARY | 2025-05-09 10:27 | XMS_ITS | Encounter Summary ---
Author Organization [facility] Address [address] [place] [address] Care Team Providers Care Net Software Engineer Name Role Phone Jose Abbasi MD Primary Care Provider Unavailable Tiff Bhakta MD Primary Care Provider [phone] Melchor Rodríguez MD Primary Care Provider [phone] Reason for Visit * Reason Onset Date Comments Orders Call 07/24/2020 Encounter Details Date Type Department Care Team Description 07/24/2020 Telephone Adult Medicine - [address] [address] Jose Abbasi MD Orders Call Social History [...] received from [facility] for [facility] for 2 visits a week for 9 weeks, and 3 PRN's for acutre health changes. Original placed in forms bin in call center. Kita pichardo. documented in this encounter Plan of Treatment Not on file documented as of this encounter Visit Diagnoses Not on filedocumented in this encounter Care Teams Net Software Engineer Relationship Specialty Start Date End Date Jose Abbasi MD PCP - General Internal Medicine 01/18/19 Tiff Bhakta MD [address] [place] [address] PCP - General Internal Medicine 08/27/21 03/26/22 Melchor Rodríguez MD [address] [place] [address] PCP - General Internal Medicine 03/27/22 documented as of this encounter
--- OUTSIDE RECORDS SUMMARY | 2025-05-09 10:27 | XMS_ITS | Encounter Summary ---
Author Organization [facility] Address [address] [place] [address] Care Team Providers Care Records Management Manager Name Role Phone Melchor Rodríguez MD Primary Care Provider [phone] Encounter Details Date Type Department Care Team Description 02/25/2023 Exercise Teacher Report Medical Records [address] [address] Social History Tobacco Use Types Packs/Day Years [...] on filedocumented in this encounter Care Teams Records Management Manager Relationship Specialty Start Date End Date Melchor Rodríguez MD [address] [place] [address] PCP - General Internal Medicine 03/27/22 documented as of this encounter
--- OUTSIDE RECORDS SUMMARY | 2025-05-09 10:27 | XMS_ITS | Encounter Summary ---
Author [place] [address] Care Team Providers Care Head Of Measurement & Insights Name Role Phone Mita Moya Primary Care Provider [phone] Reason for Visit * Reason Comments Medication Refill Encounter Details Date Type Department Care Team (Late st Contact Info) Description 04/11/2014 [place] [address] Giselle Brown APRN Social History Tobacco Use Types Packs/Day Years [...] encounter Miscellaneous Notes * Telephone Encounter - Telma Pratt RN - 04/11/2014 10:29 AM EDT Pt calls for refill of naratriptan through [facility] pharmacy in [place], [place]. Last clinic visit: 02/14/2014 Next clinic visit: 04/20/2014 documented in this encounter Plan of Treatment Not on file documented as of this encounter Visit Diagnoses Not on filedocumented in this encounter Care Teams Head Of Measurement & Insights Relationship Specialty Start Date End Date Mita Moya PA [address] [place] [address] PCP - General Family Medicine 08/27/20 documented as of this encounter
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
--- OUTSIDE RECORDS SUMMARY | 2025-05-09 10:27 | XMS_ITS | Encounter Summary ---
[facility] Address [address] [place] [address] Care Team Providers Care Supervisor Statement Clerks Name Role Phone Jose Abbasi MD Primary Care Provider Unavailable Tiff Bhakta MD Primary Care Provider [phone] Melchor Rodríguez MD Primary Care Provider [phone] Encounter Details Date Type Department Care Team Description 06/24/2019 Orders Only Medical Records [address] [place] [address] Abstract, Provider Social History Tobacco Use Types [...] filedocumented in this encounter Care Teams Supervisor Statement Clerks Relationship Specialty Start Date End Date Jose Abbasi MD PCP - General Internal Medicine 01/18/19 Tiff Bhakta MD [address] [place] [address] PCP - General Internal Medicine 08/27/21 03/26/22 Melchor Rodríguez MD [address] [place] [address] PCP - General Internal Medicine 03/27/22 documented as of this encounter
--- OUTSIDE RECORDS SUMMARY | 2025-05-09 10:27 | XMS_ITS | Encounter Summary ---
[facility] Address [address] [place] [address] Care Team Providers Care Aircraft Communicator Name Role Phone Melchor Rodríguez MD Primary Care Provider [phone] Reason for Visit * Reason Comments E-prescribe Rx Request Encounter Details Date Type Department Care Team Description 04/29/2022 Refill Adult Medicine [address] [address] Patrice Dozier MD [address] [place] [address] [phone] E-prescribe Rx Request Social History Tobacco Use [...] N/A Patients current insurance carrier is: Payor: [facility] FFS / [facility] / Product Type: MEDICAID RISK documented in this encounter Plan of Treatment Not on file documented as of this encounter Visit Diagnoses Not on filedocumented in this encounter Care Teams Aircraft Communicator Relationship Specialty Start Date End Date Melchor Rodríguez MD [address] [place] [address] PCP - General Internal Medicine 03/27/22 documented as of this encounter
== END 2025-05-09 09:41 | disposition home or self-care (01) ==
LOC: HO.HSMS 09:05
PROVIDERS: PCP Internal Medicine; Visit Provider Psychiatry & Neurology Neurology
DX: G43.719 Chronic migraine without aura, intractable, without status migrainosus (principal)
CPT/HCPCS: 64615

== ENCOUNTER → 2025-05-09 09:05 | Outpatient (BNVA) | payer OTHER, SELFPAY | PROVIDERS: PCP Internal Medicine; Visit Provider Psychiatry & Neurology Neurology | DX: G43.719 Chronic migraine without aura, intractable, without status migrainosus (principal) | CPT/HCPCS: 64615; 99211; J0585 ==

== ENCOUNTER 2025-08-08 12:55 | Outpatient (AMB) | payer OTHER, SELFPAY ==
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
[2025-08-08 13:00] VITALS: BP 128/84; PULSE 68; O2SAT 95; BMI 30.6
== END 2025-08-08 13:30 | disposition home or self-care (01) ==
LOC: HO.HSMS 12:55
PROVIDERS: PCP Internal Medicine; Visit Provider Psychiatry & Neurology Neurology
DX: G43.719 Chronic migraine without aura, intractable, without status migrainosus (principal)
CPT/HCPCS: 64615

== ENCOUNTER → 2025-08-08 12:55 | Outpatient (BNVA) | payer OTHER, SELFPAY | PROVIDERS: PCP Internal Medicine; Visit Provider Psychiatry & Neurology Neurology | DX: G43.719 Chronic migraine without aura, intractable, without status migrainosus (principal) | CPT/HCPCS: 64615; 99211; J0585 ==